=== PATIENT | male | born 1955 ===

== ENCOUNTER 2021-03-28 15:25 | Inpatient (IN) | payer MEDICARE ==
[2021-03-28] MEDS ORDERED: Bisacodyl 5 MG TAB PO PRN (16:47)
[2021-03-28] MEDS ORDERED: Ondansetron PF 4 MG/2 ML Vial IVP PRN (16:47)
[2021-03-28] MEDS ORDERED: Bisacodyl 10 MG SUPP PR PRN (16:47)
[2021-03-28] MEDS ORDERED: Pharmacy to Dose REMDESIVIR IVPB SCH ×2 (17:00→22:30)
[2021-03-28 17:42] LABS: Hemoglobin 14.4 g/dL (13.5-17.5); Mean Corpuscular HGB CONC 36.4 g/dL (32.0-36.0); Mean Corpuscular Volume 85.2 fl (81.2-95.1); Mean Platelet Volume 9.9 fl (7.4-10.4); Platelet Count 122 10x3/uL (150-450); RBC Distribution Width 13.7 % (11.5-14.5); Red Blood Cell (RBC) Count 4.65 10x6/uL (4.32-5.72); White Blood Cell (WBC) Count 9.2 10x3/uL (3.5-10.5)
[2021-03-28 17:48] LABS: D-Dimer Test 2.06 mg/L FEU (0.19-0.50); INR-International Normal Ratio 1.1; Prothrombin Time 12.4 sec (9.5-12.1)
[2021-03-28 17:59] LABS: ALT (SGPT) 39 U/L (8-55); AST (SGOT) 61 U/L (5-34); Albumin 3.4 g/dL (3.4-4.8); Alkaline Phosphatase 37 U/L (40-110); Anion Gap 14 mmol/L (10-20); BUN (Urea Nitrogen) 15 mg/dL (8.4-25.7); Bilirubin, Total 1.1 mg/dL (0.2-1.2); CRP (Inflammatory) 20.07 mg/dL (= or < 0.5); Calc. Creatinine Clearance 0 mL/min (70-130); Calcium 8.1 mg/dL (7.8-10.44); Carbon Dioxide 19 mmol/L (23-31); Chloride 102 mmol/L (98-107); Globulin 3.1 g/dL (2.4-3.5); Glucose 136 mg/dL (80-115); Magnesium 1.4 mg/dL (1.6-2.6); Potassium 3.3 mmol/L (3.5-5.1); Protein, Total 6.5 g/dL (5.8-8.1); Sodium 132 mmol/L (136-145)
[2021-03-28 18:06] LABS: Phosphorus 1.7 mg/dL (2.3-4.7); Troponin I 0.044 ng/mL (< 0.028)
[2021-03-28 18:09] LABS: MDiff Complete? YES; Manual Diff?? YES
[2021-03-28 18:13] LABS: Band 40 % (5-11); Lymphocytes 4 % (21-51); Metamyelocyte 9 % (0-0); Monocytes 4 % (0-10); Neutrophil 42 % (42-75); Reactive Lymphocytes 1 % (0-10)
[2021-03-28 18:15] LABS: Platelet Morphology Comment Appears Decreased
[2021-03-28 18:16] LABS: Dohle Bodies SLIGHT; Toxic Granulation SLIGHT; Vacuoles SLIGHT
[2021-03-28 18:17] LABS: Crenated RBC SLIGHT = 1-5 cells (100X) (None Seen)
[2021-03-28 18:18] LABS: Elliptocytes SLIGHT = 2-5 cells (100X) (0-1/hpf)
[2021-03-28] MEDS ORDERED: Sodium Chloride 0.9% 1,000 ML IV SCH (20:00)
[2021-03-28] MEDS ORDERED: Famotidine 20 MG TAB PO SCH (22:00)
[2021-03-28] MEDS ORDERED: Dexamethasone 4 mg/ml Vial SLOW IVP SCH (22:15)
[2021-03-28] MEDS ORDERED: Enoxaparin Sodium 120 MG/0.8 ML SYRINGE SC SCH (22:15)
[2021-03-28] MEDS: Acetaminophen 325 MG TAB PO PRN (22:22)
[2021-03-28] MEDS: Magnesium 2 GM/50 ML 2 GM in Premix Bag 1 BAG IVPB SCH (22:23)
[2021-03-28] MEDS: Sodium Chloride 0.9% 1,000 ML IV SCH (22:44)
[2021-03-28] MEDS ORDERED: Atorvastatin Calcium 40 MG TAB PO SCH (23:59)
[2021-03-28] MEDS ORDERED: Metoprolol Tartrate 50 MG TAB PO SCH (23:59)
[2021-03-29] MEDS: Magnesium 2 GM/50 ML 2 GM in Premix Bag 1 BAG IVPB SCH (00:28)
[2021-03-29 02:22] LABS: Legionella Urinary Ag Negative (Negative); Strep pneumo Urine Ag NEGATIVE (NEGATIVE)
[2021-03-29] MEDS: Sodium Chloride 0.9% 1,000 ML IV SCH ×2 (05:43→16:20)
[2021-03-29 06:23] LABS: #Basophils 0.1 10x3/uL (0.0-0.2); #Monocytes 0.2 10x3/uL (0.0-1.1); #Neutrophils 7.9 10x3/uL (1.5-8.4); %Basophils 0.6 % (0.0-2.0); %Lymphocytes 8.3 % (18.0-47.0); %Neutrophils 77.9 % (40.0-75.0); Hemoglobin 13.7 g/dL (13.5-17.5); Mean Corpuscular HGB CONC 35.2 g/dL (32.0-36.0); Mean Corpuscular Hemoglobin 30.5 pg (27.0-33.0); Mean Corpuscular Volume 86.6 fl (81.2-95.1); Mean Platelet Volume 10.2 fl (7.4-10.4); Platelet Count 126 10x3/uL (150-450); RBC Distribution Width 13.9 % (11.5-14.5); Red Blood Cell (RBC) Count 4.49 10x6/uL (4.32-5.72); White Blood Cell (WBC) Count 10.1 10x3/uL (3.5-10.5)
[2021-03-29 06:38] LABS: Platelet Morphology Comment Appears Adequate; RBC Morphology Normal
[2021-03-29 06:46] LABS: Band 17 % (5-11); Lymphocytes 9 % (21-51); Monocytes 4 % (0-10)
[2021-03-29 06:48] LABS: Toxic Granulation MODERATE
[2021-03-29 07:08] LABS: ALT (SGPT) 35 U/L (8-55); AST (SGOT) 58 U/L (5-34); Albumin 3.3 g/dL (3.4-4.8); Alkaline Phosphatase 37 U/L (40-110); Anion Gap 14 mmol/L (10-20); BUN (Urea Nitrogen) 15 mg/dL (8.4-25.7); Bilirubin, Total 0.9 mg/dL (0.2-1.2); CRP (Inflammatory) 25.79 mg/dL (= or < 0.5); Calc. Creatinine Clearance 128 mL/min (70-130); Calcium 8.2 mg/dL (7.8-10.44); Carbon Dioxide 21 mmol/L (23-31); Cardiac Risk 3.2 (Less than 4.5); Chloride 104 mmol/L (98-107); Cholesterol 83 mg/dl (< 200 Desired); Globulin 3.2 g/dL (2.4-3.5); Glucose 167 mg/dL (80-115); HDL Cholesterol 26 mg/dL (>60 Neg Risk); LDL Cholesterol, Calculated 34 mg/dL; Magnesium 2.7 mg/dL (1.6-2.6); Potassium 3.3 mmol/L (3.5-5.1); Protein, Total 6.5 g/dL (5.8-8.1); Sodium 136 mmol/L (136-145); Triglycerides 117 mg/dL (Less than 150)
[2021-03-29 07:13] LABS: Phosphorus 1.9 mg/dL (2.3-4.7)
[2021-03-29] MEDS ORDERED: REMDESIVIR 200 MG in Sodium Chloride 0.9% 250 ML 210 ML IV SCH (09:00)
[2021-03-29] MEDS ORDERED: Enoxaparin Sodium 40 MG/0.4 ML SYRINGE SC SCH (09:00)
[2021-03-29] MEDS: Azithromycin 500 MG in Sodium Chloride 0.9% 250 ML 250 ML IVPB SCH (09:07)
[2021-03-29] MEDS: cefTRIAXone\\ROCEPHIN 2 GM in Sodium Chloride 0.9% 100 ML IVPB SCH (09:07)
[2021-03-29] MEDS: Metoprolol Tartrate 50 MG TAB PO SCH ×2 (09:08→20:21)
[2021-03-29] MEDS: Dexamethasone 4 mg/ml Vial SLOW IVP SCH (09:08)
[2021-03-29] MEDS: Enoxaparin Sodium 120 MG/0.8 ML SYRINGE SC SCH ×2 (09:08→20:21)
[2021-03-29] MEDS: Famotidine 20 MG TAB PO SCH ×2 (09:08→20:21)
[2021-03-29] MEDS: PHOS-NAK 1 PKT PACK PO SCH ×3 (09:08→16:20)
[2021-03-29 13:42] LABS: Hemoglobin A1c 6.2 % (4.0-6.0)
[2021-03-29] MEDS: Aspirin 81 mg Enteric Coated Tablet PO SCH (20:21)
[2021-03-29] MEDS: Atorvastatin Calcium 40 MG TAB PO SCH (20:21)
[2021-03-30 05:45] LABS: ALT (SGPT) 34 U/L (8-55); AST (SGOT) 49 U/L (5-34); Alkaline Phosphatase 40 U/L (40-110); Anion Gap 13 mmol/L (10-20); BUN (Urea Nitrogen) 21 mg/dL (8.4-25.7); Bilirubin, Total 0.8 mg/dL (0.2-1.2); Calc. Creatinine Clearance 146 mL/min (70-130); Calcium 8.2 mg/dL (7.8-10.44); Carbon Dioxide 26 mmol/L (23-31); Chloride 107 mmol/L (98-107); Globulin 3.1 g/dL (2.4-3.5); Glucose 121 mg/dL (80-115); Potassium 3.7 mmol/L (3.5-5.1); Protein, Total 6.1 g/dL (5.8-8.1); Sodium 142 mmol/L (136-145)
[2021-03-30 05:49] LABS: Phosphorus 1.7 mg/dL (2.3-4.7)
[2021-03-30 05:54] LABS: Hemoglobin 12.4 g/dL (13.5-17.5); Mean Corpuscular HGB CONC 35.3 g/dL (32.0-36.0); Mean Corpuscular Hemoglobin 30.5 pg (27.0-33.0); Mean Corpuscular Volume 86.5 fl (81.2-95.1); Mean Platelet Volume 10.4 fl (7.4-10.4); Platelet Count 165 10x3/uL (150-450); Red Blood Cell (RBC) Count 4.06 10x6/uL (4.32-5.72); White Blood Cell (WBC) Count 10.3 10x3/uL (3.5-10.5)
[2021-03-30] MEDS ORDERED: Potassium Phosphate 30 MMOL in Sodium Chloride 0.9% 250 ML 250 ML IVPB SCH (06:30)
[2021-03-30 07:18] LABS: Band 14 % (5-11); Lymphocytes 8 % (21-51); Monocytes 4 % (0-10)
[2021-03-30 07:19] LABS: Anisocytosis SLIGHT = 6-15 cells (100X) (0-5/hpf); Microcytosis SLIGHT = 6-15 cells (100X) (0-5/hpf); Neutrophil 74 % (42-75); Poikilocytosis SLIGHT = 6-15 cells (100X) (0-5/hpf)
[2021-03-30 07:20] LABS: Burr Cells SLIGHT = 2-5 cells (100X) (0-1/hpf); Ovalocytes SLIGHT = 2-5 cells (100X) (0-1/hpf)
[2021-03-30 07:21] LABS: Crenated RBC SLIGHT = 1-5 cells (100X) (None Seen); Large Platelets SLIGHT; MDiff Complete? YES; Platelet Morphology Comment Appears Adequate; Toxic Granulation MODERATE
[2021-03-30] MEDS ORDERED: REMDESIVIR 100 MG in Sodium Chloride 0.9% 250 ML 230 ML IV SCH (08:00)
[2021-03-30] MEDS: Famotidine 20 MG TAB PO SCH ×2 (09:00→20:45)
[2021-03-30] MEDS: Dexamethasone 4 mg/ml Vial SLOW IVP SCH (09:00)
[2021-03-30] MEDS: PHOS-NAK 1 PKT PACK PO SCH ×3 (09:00→16:08)
[2021-03-30] MEDS: Enoxaparin Sodium 120 MG/0.8 ML SYRINGE SC SCH (09:01)
[2021-03-30] MEDS: Azithromycin 500 MG in Sodium Chloride 0.9% 250 ML 250 ML IVPB SCH (09:01)
[2021-03-30] MEDS: cefTRIAXone\\ROCEPHIN 2 GM in Sodium Chloride 0.9% 100 ML IVPB SCH (09:01)
[2021-03-30] MEDS: REMDESIVIR 100 MG in Sodium Chloride 0.9% 250 ML 230 ML IV SCH (09:01)
[2021-03-30] MEDS: Metoprolol Tartrate 50 MG TAB PO SCH ×2 (09:01→20:44)
[2021-03-30] MEDS: Atorvastatin Calcium 40 MG TAB PO SCH (20:45)
[2021-03-30] MEDS: Aspirin 81 mg Enteric Coated Tablet PO SCH (20:45)
[2021-03-31 06:49] LABS: ALT (SGPT) 57 U/L (8-55); AST (SGOT) 80 U/L (5-34); Alkaline Phosphatase 54 U/L (40-110); Anion Gap 13 mmol/L (10-20); BUN (Urea Nitrogen) 23 mg/dL (8.4-25.7); Bilirubin, Total 0.8 mg/dL (0.2-1.2); Calc. Creatinine Clearance 162 mL/min (70-130); Calcium 7.6 mg/dL (7.8-10.44); Carbon Dioxide 20 mmol/L (23-31); Chloride 109 mmol/L (98-107); Globulin 2.9 g/dL (2.4-3.5); Glucose 111 mg/dL (80-115); Mean Corpuscular HGB CONC 35.3 g/dL (32.0-36.0); Mean Corpuscular Volume 87.9 fl (81.2-95.1); Mean Platelet Volume 10.7 fl (7.4-10.4); Phosphorus 2.3 mg/dL (2.3-4.7); Platelet Count 183 10x3/uL (150-450); Potassium 3.6 mmol/L (3.5-5.1); Protein, Total 5.9 g/dL (5.8-8.1); RBC Distribution Width 14.1 % (11.5-14.5); Red Blood Cell (RBC) Count 3.87 10x6/uL (4.32-5.72); Sodium 138 mmol/L (136-145); White Blood Cell (WBC) Count 8.4 10x3/uL (3.5-10.5)
[2021-03-31 07:38] LABS: Band 6 % (5-11); Monocytes 5 % (0-10); Nucleated RBC 2 % (0); Reactive Lymphocytes 2 % (0-10)
[2021-03-31 07:39] LABS: Lymphocytes 6 % (21-51)
[2021-03-31 07:40] LABS: Anisocytosis SLIGHT = 6-15 cells (100X) (0-5/hpf)
[2021-03-31 07:41] LABS: Dohle Bodies SLIGHT; Large Platelets SLIGHT; Microcytosis SLIGHT = 6-15 cells (100X) (0-5/hpf); Platelet Morphology Comment Appears Adequate; Toxic Granulation SLIGHT
[2021-03-31 07:44] LABS: MDiff Complete? YES; Neutrophil 81 % (42-75)
[2021-03-31] MEDS ORDERED: Ipratropium Oral Inhaler INH PRN (07:50)
[2021-03-31] MEDS ORDERED: Ventolin HFA Inhaler 60 PUFF INHALER INH PRN (07:50)
[2021-03-31] MEDS ORDERED: Haloperidol Lactate 5 MG/ML VIAL SLOW IVP SCH (08:08)
[2021-03-31 08:45] LABS: Glucose POC Confirmation 109 mg/dl (80-115)
[2021-03-31] MEDS: Azithromycin 500 MG in Sodium Chloride 0.9% 250 ML 250 ML IVPB SCH (10:00)
[2021-03-31 10:01] LABS: Actual Bicarbonate (HCO3a) 21.7 mEq/L (22-28); Base Excess (BEa) 0.6 mEq/L (-2.0 to +3.0); CO2 Tension 25.7 mmHg (35.0-45.0); Calcium, Ionized (arterial) 1.04 mmol/L (1.12-1.30); Carboxyhemoglobin (COHb) 0.3 gm% (0.0-3.0); Hemoglobin (Hb) 13.1 g/dL (14.0-18.0); O2 Tension (PaO2), arterial 44.1 mmHg (> 80.0); Potassium - ABG Lab 3.5 mmol/L (3.70-5.30); Puncture Site RRA; pH, Arterial 7.54 (7.35-7.45)
[2021-03-31 10:05] LABS: ALV-art Gradient 636.775 mmHg (0-20)
[2021-03-31] MEDS: Dexamethasone 20 MG/5 ML VIAL SLOW IVP SCH ×2 (11:15→20:38)
[2021-03-31] MEDS: Famotidine 20 MG TAB PO SCH ×2 (11:15→20:36)
[2021-03-31] MEDS: Metoprolol Tartrate 50 MG TAB PO SCH ×2 (11:15→20:38)
[2021-03-31] MEDS: Enoxaparin Sodium 40 MG/0.4 ML SYRINGE SC SCH (11:15)
[2021-03-31] MEDS: PHOS-NAK 1 PKT PACK PO SCH (11:44)
[2021-03-31] MEDS: Dexmedetomidine In 0.9 % NaCl 100 ML IVPB SCH ×3 (12:04→20:37)
[2021-03-31] MEDS: REMDESIVIR 100 MG in Sodium Chloride 0.9% 250 ML 230 ML IV SCH (12:06)
[2021-03-31] MEDS ORDERED: cefTRIAXone\\ROCEPHIN 2 GM in Sodium Chloride 0.9% 100 ML IVPB SCH (12:15)
[2021-03-31] MEDS: Furosemide 20 MG/2 ML VIAL SLOW IVP SCH (13:05)
[2021-03-31] MEDS: cefTRIAXone\\ROCEPHIN 2 GM in Sodium Chloride 0.9% 100 ML IVPB SCH (13:50)
[2021-03-31] MEDS: Aspirin 81 mg Enteric Coated Tablet PO SCH (20:36)
[2021-03-31] MEDS: Atorvastatin Calcium 40 MG TAB PO SCH (20:36)
[2021-04-01] MEDS: Dexmedetomidine In 0.9 % NaCl 100 ML IVPB SCH ×8 (01:40→22:34)
[2021-04-01] MEDS ORDERED: Morphine 4 MG/ML VIAL SLOW IVP SCH (02:30)
[2021-04-01] MEDS ORDERED: Haloperidol Lactate 5 MG/ML VIAL IM SCH (02:30)
[2021-04-01 03:55] LABS: Hemoglobin 11.5 g/dL (13.5-17.5); Mean Corpuscular HGB CONC 35.4 g/dL (32.0-36.0); Mean Corpuscular Hemoglobin 30.7 pg (27.0-33.0); Mean Corpuscular Volume 86.7 fl (81.2-95.1); Mean Platelet Volume 10.7 fl (7.4-10.4); Platelet Count 196 10x3/uL (150-450); RBC Distribution Width 14.3 % (11.5-14.5); Red Blood Cell (RBC) Count 3.75 10x6/uL (4.32-5.72); White Blood Cell (WBC) Count 5.6 10x3/uL (3.5-10.5)
[2021-04-01 04:07] LABS: ALT (SGPT) 61 U/L (8-55); AST (SGOT) 70 U/L (5-34); Albumin 2.9 g/dL (3.4-4.8); Alkaline Phosphatase 58 U/L (40-110); Anion Gap 15 mmol/L (10-20); BUN (Urea Nitrogen) 27 mg/dL (8.4-25.7); Bilirubin, Total 0.9 mg/dL (0.2-1.2); Calc. Creatinine Clearance 155 mL/min (70-130); Calcium 7.5 mg/dL (7.8-10.44); Carbon Dioxide 18 mmol/L (23-31); Chloride 108 mmol/L (98-107); Globulin 2.9 g/dL (2.4-3.5); Glucose 164 mg/dL (80-115); Magnesium 2.9 mg/dL (1.6-2.6); Phosphorus 2.8 mg/dL (2.3-4.7); Potassium 3.8 mmol/L (3.5-5.1); Protein, Total 5.8 g/dL (5.8-8.1); Sodium 137 mmol/L (136-145)
[2021-04-01 04:51] LABS: Band 4 % (5-11); Lymphocytes 15 % (21-51); Metamyelocyte 1 % (0-0); Monocytes 3 % (0-10); Neutrophil 75 % (42-75); Reactive Lymphocytes 2 % (0-10)
[2021-04-01 04:52] LABS: Anisocytosis SLIGHT = 6-15 cells (100X) (0-5/hpf); Burr Cells SLIGHT = 2-5 cells (100X) (0-1/hpf); Ovalocytes SLIGHT = 2-5 cells (100X) (0-1/hpf); Poikilocytosis SLIGHT = 6-15 cells (100X) (0-5/hpf)
[2021-04-01 04:53] LABS: Large Platelets SLIGHT; Microcytosis SLIGHT = 6-15 cells (100X) (0-5/hpf); Platelet Clumps SLIGHT; Toxic Granulation MODERATE
[2021-04-01 04:54] LABS: Platelet Morphology Comment Appears Adequate
[2021-04-01 04:55] LABS: MDiff Complete? YES
[2021-04-01] MEDS: Furosemide 20 MG/2 ML VIAL SLOW IVP SCH ×2 (06:38→14:54)
[2021-04-01 07:24] LABS: Actual Bicarbonate (HCO3a) 19.3 mEq/L (22-28); Base Excess (BEa) -2.3 mEq/L (-2.0 to +3.0); CO2 Tension 25.1 mmHg (35.0-45.0); Calcium, Ionized (arterial) 1.02 mmol/L (1.12-1.30); Carboxyhemoglobin (COHb) 0.2 gm% (0.0-3.0); Hemoglobin (Hb) 13.2 g/dL (14.0-18.0); O2 Tension (PaO2), arterial 47.7 mmHg (> 80.0); Potassium - ABG Lab 3.6 mmol/L (3.70-5.30); Puncture Site LRA
[2021-04-01 07:29] LABS: ALV-art Gradient 598.275 mmHg (0-20)
[2021-04-01] MEDS: Azithromycin 500 MG in Sodium Chloride 0.9% 250 ML 250 ML IVPB SCH (08:08)
[2021-04-01] MEDS: cefTRIAXone\\ROCEPHIN 2 GM in Sodium Chloride 0.9% 100 ML IVPB SCH (08:11)
[2021-04-01] MEDS: Enoxaparin Sodium 40 MG/0.4 ML SYRINGE SC SCH (08:14)
[2021-04-01] MEDS: Famotidine 20 MG TAB PO SCH ×2 (08:14→21:34)
[2021-04-01] MEDS: Metoprolol Tartrate 50 MG TAB PO SCH (08:14)
[2021-04-01] MEDS: Dexamethasone 20 MG/5 ML VIAL SLOW IVP SCH ×2 (08:15→21:14)
[2021-04-01] MEDS ORDERED: cefTRIAXone\\ROCEPHIN 2 GM in Sodium Chloride 0.9% 100 ML IVPB SCH (09:00)
[2021-04-01] MEDS ORDERED: Electrolyte Replacement Protocol 1 EACH FS SCH (10:30)
[2021-04-01] MEDS: REMDESIVIR 100 MG in Sodium Chloride 0.9% 250 ML 230 ML IV SCH (10:36)
[2021-04-01] MEDS: Haloperidol Lactate 5 MG/ML VIAL SLOW IVP PRN (11:45)
[2021-04-01] MEDS: Lorazepam 2 MG/ML VIAL SLOW IVP PRN ×2 (17:12→21:14)
[2021-04-01] MEDS ORDERED: Sterile Water 10 ML VIAL FS PRN (18:00)
[2021-04-01] MEDS ORDERED: Ziprasidone 20 MG VIAL IM SCH (18:00)
[2021-04-01] MEDS: Atorvastatin Calcium 40 MG TAB PO SCH (21:34)
[2021-04-01] MEDS: Metoprolol Tartrate 25 MG TAB PO SCH (21:34)
[2021-04-01] MEDS: Aspirin 81 mg Enteric Coated Tablet PO SCH (21:34)
[2021-04-02] MEDS: Dexmedetomidine In 0.9 % NaCl 100 ML IVPB SCH ×5 (01:00→22:21)
[2021-04-02] MEDS: Lorazepam 2 MG/ML VIAL SLOW IVP PRN ×6 (03:40→15:51)
[2021-04-02 04:13] LABS: Hemoglobin 13.6 g/dL (13.5-17.5); Mean Corpuscular Hemoglobin 30.8 pg (27.0-33.0); Mean Corpuscular Volume 88.2 fl (81.2-95.1); Mean Platelet Volume 10.5 fl (7.4-10.4); Platelet Count 224 10x3/uL (150-450); RBC Distribution Width 14.6 % (11.5-14.5); Red Blood Cell (RBC) Count 4.41 10x6/uL (4.32-5.72); White Blood Cell (WBC) Count 8.1 10x3/uL (3.5-10.5)
[2021-04-02 04:22] LABS: ALT (SGPT) 55 U/L (8-55); AST (SGOT) 57 U/L (5-34); Albumin 3.1 g/dL (3.4-4.8); Alkaline Phosphatase 80 U/L (40-110); Anion Gap 14 mmol/L (10-20); BUN (Urea Nitrogen) 25 mg/dL (8.4-25.7); Bilirubin, Total 0.9 mg/dL (0.2-1.2); Calc. Creatinine Clearance 149 mL/min (70-130); Calcium 7.6 mg/dL (7.8-10.44); Carbon Dioxide 22 mmol/L (23-31); Chloride 110 mmol/L (98-107); Globulin 3.4 g/dL (2.4-3.5); Glucose 187 mg/dL (80-115); Magnesium 2.8 mg/dL (1.6-2.6); Phosphorus 3.3 mg/dL (2.3-4.7); Protein, Total 6.5 g/dL (5.8-8.1); Sodium 142 mmol/L (136-145)
[2021-04-02] MEDS: Furosemide 20 MG/2 ML VIAL SLOW IVP SCH ×2 (05:46→13:16)
[2021-04-02 05:52] LABS: Lymphocytes 20 % (21-51); Monocytes 6 % (0-10)
[2021-04-02 05:54] LABS: Nucleated RBC 1 % (0); Reactive Lymphocytes 4 % (0-10)
[2021-04-02 05:55] LABS: Band 5 % (5-11); Neutrophil 65 % (42-75)
[2021-04-02 05:56] LABS: Large Platelets SLIGHT; Platelet Morphology Comment Appears Adequate; Toxic Granulation MODERATE
[2021-04-02 05:57] LABS: MDiff Complete? YES; RBC Morphology Normal
[2021-04-02] MEDS ORDERED: Dextrose 5% in Water 1,000 ML IV PRN (07:41)
[2021-04-02] MEDS ORDERED: Dextrose 50% Abboject 50 ML SYRINGE SLOW IVP PRN (07:41)
[2021-04-02] MEDS: Dexamethasone 20 MG/5 ML VIAL SLOW IVP SCH ×2 (08:33→20:55)
[2021-04-02] MEDS: Enoxaparin Sodium 40 MG/0.4 ML SYRINGE SC SCH (08:36)
[2021-04-02] MEDS: Metoprolol Tartrate 25 MG TAB PO SCH ×2 (08:36→21:03)
[2021-04-02] MEDS: Famotidine/PF 20 mg/2ml Vial SLOW IVP SCH ×2 (08:39→20:56)
[2021-04-02] MEDS: cefTRIAXone\\ROCEPHIN 2 GM in Sodium Chloride 0.9% 100 ML IVPB SCH (08:42)
[2021-04-02] MEDS ORDERED: Amino Acids 4.25 %/Dextrose 5% 2,000 ML BAG IV SCH (09:00)
[2021-04-02] MEDS: REMDESIVIR 100 MG in Sodium Chloride 0.9% 250 ML 230 ML IV SCH (09:00)
[2021-04-02] MEDS: Azithromycin 500 MG in Sodium Chloride 0.9% 250 ML 250 ML IVPB SCH (09:02)
[2021-04-02] MEDS ORDERED: OLANZapine 10 MG VIAL IM SCH ×2 (11:00→21:00)
[2021-04-02] MEDS ORDERED: BARICITINIB 2 MG TAB PO SCH (14:00)
[2021-04-02] MEDS ORDERED: Amino Acids 4.25 %/Dextrose 5% 2,000 ML IV SCH (14:00)
[2021-04-02] MEDS: Haloperidol Lactate 5 MG/ML VIAL SLOW IVP PRN (15:20)
[2021-04-02] MEDS ORDERED: Propofol 1,000 MG/100 ML VIAL IV ONE (15:30)
[2021-04-02] MEDS ORDERED: Rocuronium Bromide 10 MG/ML (10ML VIAL) IVP SCH (15:35)
[2021-04-02] MEDS ORDERED: Rocuronium Bromide 10 MG/ML (10ML VIAL) ONE (15:36)
[2021-04-02] MEDS ORDERED: Morphine 2 MG/ML VIAL SLOW IVP PRN (16:30)
[2021-04-02] MEDS ORDERED: Propofol BOLUS 1,000 MG/100 ML VIAL IV PRN (16:30)
[2021-04-02] MEDS ORDERED: Fentanyl BOLUS 250 ML IVPB PRN (16:30)
[2021-04-02] MEDS ORDERED: Ventilator Sedation Protocol 1 EACH FS SCH (16:45)
[2021-04-02 16:49] LABS: Actual Bicarbonate (HCO3a) 23.5 mEq/L (22-28); Base Excess (BEa) -4.3 mEq/L (-2.0 to +3.0); CO2 Tension 54.4 mmHg (35.0-45.0); Calcium, Ionized (arterial) 1.03 mmol/L (1.12-1.30); Hemoglobin (Hb) 13.6 g/dL (14.0-18.0); O2 Tension (PaO2), arterial 75.9 mmHg (> 80.0); Potassium - ABG Lab 3.7 mmol/L (3.70-5.30); Puncture Site LRA; pH, Arterial 7.25 (7.35-7.45)
[2021-04-02] MEDS: Propofol 1,000 MG/100 ML VIAL IV PRN ×2 (18:00→21:52)
[2021-04-02] MEDS ORDERED: Sodium Chloride 0.9% 250 ML IV SCH (20:30)
[2021-04-02] MEDS: Norepinephrine 8 MG/0.9% NS 250 ML IVPB SCH (20:45)
[2021-04-02] MEDS: Atorvastatin Calcium 40 MG TAB PO SCH (20:54)
[2021-04-02] MEDS: BARICITINIB 2 MG TAB PO SCH (20:54)
[2021-04-02] MEDS: Aspirin 81 mg Enteric Coated Tablet PO SCH (20:54)
[2021-04-02] MEDS: Senokot S 8.6-50 MG TAB PO PRN (20:55)
[2021-04-02] MEDS: HumaLOG 300 UNITS/3 ML VIAL SC PRN (22:07)
[2021-04-02 22:16] LABS: Hemoglobin 12.2 g/dL (13.5-17.5); Mean Corpuscular HGB CONC 34.1 g/dL (32.0-36.0); Mean Corpuscular Hemoglobin 30.3 pg (27.0-33.0); Mean Corpuscular Volume 89.1 fl (81.2-95.1); Mean Platelet Volume 10.8 fl (7.4-10.4); Platelet Count 183 10x3/uL (150-450); RBC Distribution Width 14.8 % (11.5-14.5); Red Blood Cell (RBC) Count 4.02 10x6/uL (4.32-5.72); White Blood Cell (WBC) Count 8.2 10x3/uL (3.5-10.5)
[2021-04-02] MEDS: Vecuronium Bromide 50 MG, Admixture Fee 1 EACH in Sodium Chloride 0.9% 250 ML 250 ML IV SCH (22:21)
[2021-04-02 22:27] LABS: ALT (SGPT) 52 U/L (8-55); AST (SGOT) 45 U/L (5-34); Albumin 2.9 g/dL (3.4-4.8); Alkaline Phosphatase 74 U/L (40-110); Anion Gap 14 mmol/L (10-20); BUN (Urea Nitrogen) 32 mg/dL (8.4-25.7); Bilirubin, Total 0.8 mg/dL (0.2-1.2); Calc. Creatinine Clearance 133 mL/min (70-130); Calcium 7.4 mg/dL (7.8-10.44); Carbon Dioxide 23 mmol/L (23-31); Chloride 111 mmol/L (98-107); Globulin 3.5 g/dL (2.4-3.5); Glucose 195 mg/dL (80-115); Potassium 4.3 mmol/L (3.5-5.1); Protein, Total 6.4 g/dL (5.8-8.1); Sodium 144 mmol/L (136-145)
[2021-04-02 23:02] LABS: Band 8 % (5-11); Lymphocytes 7 % (21-51); Metamyelocyte 2 % (0-0); Myelocyte 1 % (0-0)
[2021-04-02 23:04] LABS: Reactive Lymphocytes 2 % (0-10)
[2021-04-02 23:05] LABS: Monocytes 2 % (0-10); Neutrophil 78 % (42-75)
[2021-04-02 23:07] LABS: Large Platelets SLIGHT; Platelet Clumps SLIGHT; Platelet Morphology Comment Appears Adequate; Toxic Granulation MODERATE
[2021-04-02 23:08] LABS: MDiff Complete? YES; RBC Morphology Normal
[2021-04-02 23:51] LABS: Base Excess (BEa) -3.4 mEq/L (-2.0 to +3.0); CO2 Tension 52.8 mmHg (35.0-45.0); Calcium, Ionized (arterial) 1.04 mmol/L (1.12-1.30); Carboxyhemoglobin (COHb) 0.5 gm% (0.0-3.0); Hemoglobin (Hb) 13.9 g/dL (14.0-18.0); Potassium - ABG Lab 4.3 mmol/L (3.70-5.30); Puncture Site RBA; pH, Arterial 7.28 (7.35-7.45)
[2021-04-03] MEDS: Propofol 1,000 MG/100 ML VIAL IV PRN ×6 (04:09→20:13)
[2021-04-03] MEDS: Furosemide 20 MG/2 ML VIAL SLOW IVP SCH ×2 (04:09→14:27)
[2021-04-03 04:33] LABS: ALT (SGPT) 48 U/L (8-55); AST (SGOT) 34 U/L (5-34); Albumin 2.7 g/dL (3.4-4.8); Alkaline Phosphatase 66 U/L (40-110); Anion Gap 13 mmol/L (10-20); BUN (Urea Nitrogen) 31 mg/dL (8.4-25.7); Bilirubin, Total 0.8 mg/dL (0.2-1.2); Calc. Creatinine Clearance 133 mL/min (70-130); Calcium 7.1 mg/dL (7.8-10.44); Carbon Dioxide 24 mmol/L (23-31); Chloride 110 mmol/L (98-107); Globulin 3.4 g/dL (2.4-3.5); Glucose 278 mg/dL (80-115); Magnesium 3.1 mg/dL (1.6-2.6); Phosphorus 3.7 mg/dL (2.3-4.7); Potassium 4.8 mmol/L (3.5-5.1); Protein, Total 6.1 g/dL (5.8-8.1); Sodium 142 mmol/L (136-145)
[2021-04-03 04:52] LABS: Band 5 % (5-11); Lymphocytes 6 % (21-51); Monocytes 2 % (0-10); Myelocyte 1 % (0-0)
[2021-04-03 04:55] LABS: Neutrophil 84 % (42-75)
[2021-04-03 04:56] LABS: Reactive Lymphocytes 2 % (0-10)
[2021-04-03 04:58] LABS: Anisocytosis MODERATE=16-30 cells (100X) (0-5/hpf); Macrocytosis SLIGHT = 6-15 cells (100X) (0-5/hpf); Microcytosis SLIGHT = 6-15 cells (100X) (0-5/hpf)
[2021-04-03 05:01] LABS: Ovalocytes SLIGHT = 2-5 cells (100X) (0-1/hpf); Toxic Granulation MODERATE
[2021-04-03 05:02] LABS: Platelet Morphology Comment Appears Adequate
[2021-04-03 05:03] LABS: Large Platelets MODERATE
[2021-04-03 05:05] LABS: Hemoglobin 11.7 g/dL (13.5-17.5); Mean Corpuscular HGB CONC 33.7 g/dL (32.0-36.0); Mean Corpuscular Hemoglobin 30.6 pg (27.0-33.0); Mean Corpuscular Volume 90.8 fl (81.2-95.1); Platelet Count 159 10x3/uL (150-450); Red Blood Cell (RBC) Count 3.82 10x6/uL (4.32-5.72); White Blood Cell (WBC) Count 6.8 10x3/uL (3.5-10.5)
[2021-04-03 05:06] LABS: MDiff Complete? YES
[2021-04-03] MEDS: HumaLOG 300 UNITS/3 ML VIAL SC PRN ×4 (05:20→20:42)
[2021-04-03] MEDS: Vecuronium Bromide 50 MG, Admixture Fee 1 EACH in Sodium Chloride 0.9% 250 ML 250 ML IV SCH ×2 (05:52→17:34)
[2021-04-03] MEDS: fentaNYL Citrate-0.9 % NaCl/PF 100 ML IVPB SCH ×2 (05:53→20:12)
[2021-04-03] MEDS: Dexmedetomidine In 0.9 % NaCl 100 ML IVPB SCH ×6 (05:53→23:47)
[2021-04-03 08:10] LABS: ALV-art Gradient 429.875 mmHg (0-20); Actual Bicarbonate (HCO3a) 23.7 mEq/L (22-28); CO2 Tension 48.9 mmHg (35.0-45.0); Calcium, Ionized (arterial) 1.08 mmol/L (1.12-1.30); Carboxyhemoglobin (COHb) 0.3 gm% (0.0-3.0); Hemoglobin (Hb) 12.5 g/dL (14.0-18.0); O2 Tension (PaO2), arterial 79.4 mmHg (> 80.0); Potassium - ABG Lab 4.7 mmol/L (3.70-5.30); Puncture Site RRA
[2021-04-03] MEDS: Metoprolol Tartrate 25 MG TAB PO SCH ×2 (08:51→20:15)
[2021-04-03] MEDS: Enoxaparin Sodium 40 MG/0.4 ML SYRINGE SC SCH ×2 (08:55→20:12)
[2021-04-03] MEDS: Dexamethasone 20 MG/5 ML VIAL SLOW IVP SCH ×2 (08:55→20:13)
[2021-04-03] MEDS: Famotidine/PF 20 mg/2ml Vial SLOW IVP SCH ×2 (08:55→20:13)
[2021-04-03] MEDS: cefTRIAXone\\ROCEPHIN 2 GM in Sodium Chloride 0.9% 100 ML IVPB SCH (08:56)
[2021-04-03] MEDS: Norepinephrine 8 MG/0.9% NS 250 ML IVPB SCH (10:36)
[2021-04-03] MEDS: Senokot S 8.6-50 MG TAB PO PRN (20:14)
[2021-04-03] MEDS: Atorvastatin Calcium 40 MG TAB PO SCH (20:14)
[2021-04-03] MEDS: BARICITINIB 2 MG TAB PO SCH (20:14)
[2021-04-03] MEDS: Aspirin 81 mg Enteric Coated Tablet PO SCH (20:16)
[2021-04-04] MEDS: Propofol 1,000 MG/100 ML VIAL IV PRN ×6 (00:50→18:06)
[2021-04-04] MEDS: Dexmedetomidine In 0.9 % NaCl 100 ML IVPB SCH ×4 (03:08→18:04)
[2021-04-04 03:48] LABS: #Monocytes 0.1 10x3/uL (0.0-1.1); #Neutrophils 4.6 10x3/uL (1.5-8.4); %Basophils 0.2 % (0.0-2.0); %Lymphocytes 9.7 % (18.0-47.0); %Monocytes 1.8 % (0.0-10.0); %Neutrophils 83.9 % (40.0-75.0); Hemoglobin 10.9 g/dL (13.5-17.5); Mean Corpuscular HGB CONC 33.2 g/dL (32.0-36.0); Mean Corpuscular Hemoglobin 31.1 pg (27.0-33.0); Mean Corpuscular Volume 93.4 fl (81.2-95.1); Mean Platelet Volume 10.8 fl (7.4-10.4); Platelet Count 154 10x3/uL (150-450); RBC Distribution Width 15.4 % (11.5-14.5); Red Blood Cell (RBC) Count 3.51 10x6/uL (4.32-5.72); White Blood Cell (WBC) Count 5.5 10x3/uL (3.5-10.5)
[2021-04-04 04:07] LABS: ALT (SGPT) 33 U/L (8-55); AST (SGOT) 22 U/L (5-34); Albumin 2.6 g/dL (3.4-4.8); Alkaline Phosphatase 56 U/L (40-110); Anion Gap 11 mmol/L (10-20); BUN (Urea Nitrogen) 25 mg/dL (8.4-25.7); Bilirubin, Direct 0.3 mg/dL (0.1-0.3); Bilirubin, Total 0.5 mg/dL (0.2-1.2); Calc. Creatinine Clearance 147 mL/min (70-130); Calcium 7.2 mg/dL (7.8-10.44); Carbon Dioxide 27 mmol/L (23-31); Chloride 113 mmol/L (98-107); Globulin 3.1 g/dL (2.4-3.5); Glucose 256 mg/dL (80-115); Magnesium 3.1 mg/dL (1.6-2.6); Phosphorus 2.9 mg/dL (2.3-4.7); Potassium 5.1 mmol/L (3.5-5.1); Protein, Total 5.7 g/dL (5.8-8.1); Sodium 146 mmol/L (136-145)
[2021-04-04] MEDS: HumaLOG 300 UNITS/3 ML VIAL SC PRN ×3 (04:32→21:09)
[2021-04-04] MEDS: Vecuronium Bromide 50 MG, Admixture Fee 1 EACH in Sodium Chloride 0.9% 250 ML 250 ML IV SCH ×2 (06:33→18:50)
[2021-04-04] MEDS: Furosemide 20 MG/2 ML VIAL SLOW IVP SCH (06:54)
[2021-04-04 08:13] LABS: Actual Bicarbonate (HCO3a) 26.5 mEq/L (22-28); Base Excess (BEa) 0.5 mEq/L (-2.0 to +3.0); CO2 Tension 48.5 mmHg (35.0-45.0); Calcium, Ionized (arterial) 1.05 mmol/L (1.12-1.30); Carboxyhemoglobin (COHb) 0.2 gm% (0.0-3.0); O2 Tension (PaO2), arterial 82.1 mmHg (> 80.0); Potassium - ABG Lab 4.3 mmol/L (3.70-5.30); Puncture Site LRA; pH, Arterial 7.36 (7.35-7.45)
[2021-04-04 08:17] LABS: ALV-art Gradient 356.375 mmHg (0-20)
[2021-04-04 08:34] LABS: CK (CPK) 29 U/L (30-200); Triglycerides 148 mg/dL (Less than 150)
[2021-04-04] MEDS: Famotidine/PF 20 mg/2ml Vial SLOW IVP SCH ×2 (10:30→21:10)
[2021-04-04] MEDS: cefTRIAXone\\ROCEPHIN 2 GM in Sodium Chloride 0.9% 100 ML IVPB SCH (10:30)
[2021-04-04] MEDS ORDERED: OLANZapine 10 MG VIAL IM SCH (10:30)
[2021-04-04] MEDS: Dexamethasone 20 MG/5 ML VIAL SLOW IVP SCH ×2 (10:30→21:09)
[2021-04-04] MEDS: Senokot S 8.6-50 MG TAB PO PRN (10:30)
[2021-04-04] MEDS ORDERED: Lantus 1000 UNITS/10 ML VIAL SC SCH (10:30)
[2021-04-04] MEDS: Enoxaparin Sodium 40 MG/0.4 ML SYRINGE SC SCH ×2 (10:30→21:12)
[2021-04-04] MEDS: fentaNYL Citrate-0.9 % NaCl/PF 100 ML IVPB SCH ×2 (10:31→22:40)
[2021-04-04] MEDS: Lorazepam 2 MG/ML VIAL SLOW IVP PRN (15:53)
[2021-04-04] MEDS: Metoprolol Tartrate 25 MG TAB PO SCH (20:56)
[2021-04-04] MEDS: BARICITINIB 2 MG TAB PO SCH (21:12)
[2021-04-04] MEDS: Atorvastatin Calcium 40 MG TAB PO SCH (21:13)
[2021-04-04] MEDS: Aspirin 81 mg Enteric Coated Tablet PO SCH (21:13)
[2021-04-05] MEDS: Dexmedetomidine In 0.9 % NaCl 100 ML IVPB SCH ×5 (00:08→21:26)
[2021-04-05] MEDS: Propofol 1,000 MG/100 ML VIAL IV PRN ×7 (03:22→21:35)
[2021-04-05] MEDS: HumaLOG 300 UNITS/3 ML VIAL SC PRN ×3 (04:49→16:18)
[2021-04-05] MEDS: OLANZapine 10 MG VIAL IM SCH (08:49)
[2021-04-05] MEDS: Senokot S 8.6-50 MG TAB PO PRN (08:50)
[2021-04-05] MEDS: cefTRIAXone\\ROCEPHIN 2 GM in Sodium Chloride 0.9% 100 ML IVPB SCH (08:50)
[2021-04-05] MEDS: fentaNYL Citrate-0.9 % NaCl/PF 100 ML IVPB SCH (08:51)
[2021-04-05] MEDS: Enoxaparin Sodium 40 MG/0.4 ML SYRINGE SC SCH ×2 (08:52→21:27)
[2021-04-05] MEDS: Famotidine/PF 20 mg/2ml Vial SLOW IVP SCH ×2 (08:52→21:27)
[2021-04-05] MEDS: Lorazepam 2 MG/ML VIAL SLOW IVP PRN ×3 (08:52→16:23)
[2021-04-05] MEDS: Dexamethasone 20 MG/5 ML VIAL SLOW IVP SCH ×2 (08:52→21:27)
[2021-04-05 09:16] LABS: Anion Gap 10 mmol/L (10-20); BUN (Urea Nitrogen) 30 mg/dL (8.4-25.7); Calc. Creatinine Clearance 143 mL/min (70-130); Calcium 7.2 mg/dL (7.8-10.44); Carbon Dioxide 30 mmol/L (23-31); Chloride 111 mmol/L (98-107); Glucose 264 mg/dL (80-115); Sodium 146 mmol/L (136-145)
[2021-04-05] MEDS: Lantus 1000 UNITS/10 ML VIAL SC SCH (09:37)
[2021-04-05] MEDS: Vecuronium Bromide 50 MG, Admixture Fee 1 EACH in Sodium Chloride 0.9% 250 ML 250 ML IV SCH (09:42)
[2021-04-05] MEDS: BARICITINIB 2 MG TAB PO SCH (21:26)
[2021-04-05] MEDS: Aspirin 81 mg Enteric Coated Tablet PO SCH (21:26)
[2021-04-05] MEDS: Atorvastatin Calcium 40 MG TAB PO SCH (21:26)
[2021-04-05] MEDS: Senokot S 8.6-50 MG TAB PO SCH (21:27)
[2021-04-06] MEDS: fentaNYL Citrate-0.9 % NaCl/PF 100 ML IVPB SCH ×3 (00:06→21:42)
[2021-04-06] MEDS: Propofol 1,000 MG/100 ML VIAL IV PRN ×6 (01:31→21:42)
[2021-04-06] MEDS: Dexmedetomidine In 0.9 % NaCl 100 ML IVPB SCH ×5 (01:31→21:42)
[2021-04-06] MEDS: Vecuronium Bromide 50 MG, Admixture Fee 1 EACH in Sodium Chloride 0.9% 250 ML 250 ML IV SCH (01:31)
[2021-04-06 04:31] LABS: #Monocytes 0.3 10x3/uL (0.0-1.1); #Neutrophils 7.8 10x3/uL (1.5-8.4); %Basophils 0.1 % (0.0-2.0); %Lymphocytes 4.7 % (18.0-47.0); %Monocytes 3.6 % (0.0-10.0); %Neutrophils 89.6 % (40.0-75.0); Mean Corpuscular HGB CONC 31.2 g/dL (32.0-36.0); Mean Corpuscular Hemoglobin 30.2 pg (27.0-33.0); Mean Platelet Volume 10.4 fl (7.4-10.4); Platelet Count 170 10x3/uL (150-450); RBC Distribution Width 15.4 % (11.5-14.5); Red Blood Cell (RBC) Count 3.31 10x6/uL (4.32-5.72); White Blood Cell (WBC) Count 8.7 10x3/uL (3.5-10.5)
[2021-04-06 04:49] LABS: ALT (SGPT) 32 U/L (8-55); AST (SGOT) 29 U/L (5-34); Albumin 2.5 g/dL (3.4-4.8); Alkaline Phosphatase 64 U/L (40-110); Anion Gap 9 mmol/L (10-20); BUN (Urea Nitrogen) 26 mg/dL (8.4-25.7); Bilirubin, Total 0.6 mg/dL (0.2-1.2); Calc. Creatinine Clearance 145 mL/min (70-130); Calcium 7.4 mg/dL (7.8-10.44); Carbon Dioxide 30 mmol/L (23-31); Chloride 114 mmol/L (98-107); Globulin 3.4 g/dL (2.4-3.5); Glucose 247 mg/dL (80-115); Potassium 5.2 mmol/L (3.5-5.1); Protein, Total 5.9 g/dL (5.8-8.1); Sodium 148 mmol/L (136-145)
[2021-04-06] MEDS: HumaLOG 300 UNITS/3 ML VIAL SC PRN ×3 (06:17→18:38)
[2021-04-06 08:04] LABS: Actual Bicarbonate (HCO3a) 30.5 mEq/L (22-28); Base Excess (BEa) 4.8 mEq/L (-2.0 to +3.0); CO2 Tension 50.3 mmHg (35.0-45.0); Calcium, Ionized (arterial) 1.08 mmol/L (1.12-1.30); Hemoglobin (Hb) 10.3 g/dL (14.0-18.0); O2 Tension (PaO2), arterial 67.3 mmHg (> 80.0); Potassium - ABG Lab 4.9 mmol/L (3.70-5.30); Puncture Site RRA
[2021-04-06 08:06] LABS: ALV-art Gradient 226.325 mmHg (0-20)
[2021-04-06] MEDS: Enoxaparin Sodium 40 MG/0.4 ML SYRINGE SC SCH ×2 (08:15→20:32)
[2021-04-06] MEDS: Dexamethasone 20 MG/5 ML VIAL SLOW IVP SCH ×2 (08:16→20:29)
[2021-04-06] MEDS: Polyethylene Glycol 3350 17 GM Packet PER TUBE SCH (08:17)
[2021-04-06] MEDS: Famotidine/PF 20 mg/2ml Vial SLOW IVP SCH ×2 (08:17→20:28)
[2021-04-06] MEDS: Lorazepam 2 MG/ML VIAL SLOW IVP PRN ×3 (08:17→20:29)
[2021-04-06] MEDS: Senokot S 8.6-50 MG TAB PO SCH ×2 (08:17→20:29)
[2021-04-06] MEDS: Lantus 1000 UNITS/10 ML VIAL SC SCH ×2 (08:18→20:31)
[2021-04-06] MEDS: OLANZapine 10 MG VIAL IM SCH (08:21)
[2021-04-06] MEDS: BARICITINIB 2 MG TAB PO SCH (20:29)
[2021-04-06] MEDS: Atorvastatin Calcium 40 MG TAB PO SCH (20:30)
[2021-04-06] MEDS: Aspirin 81 mg Enteric Coated Tablet PO SCH (20:30)
[2021-04-06] MEDS: Nystatin 500,000 UNITS/5 ML UDCUP SSW SCH (21:47)
[2021-04-07] MEDS: Dexmedetomidine In 0.9 % NaCl 100 ML IVPB SCH ×5 (01:42→23:15)
[2021-04-07] MEDS: Propofol 1,000 MG/100 ML VIAL IV PRN ×5 (01:42→21:00)
[2021-04-07 04:28] LABS: #Monocytes 0.2 10x3/uL (0.0-1.1); #Neutrophils 6.9 10x3/uL (1.5-8.4); %Basophils 0.1 % (0.0-2.0); %Lymphocytes 7.8 % (18.0-47.0); %Monocytes 2.9 % (0.0-10.0); %Neutrophils 87.9 % (40.0-75.0); Hemoglobin 9.4 g/dL (13.5-17.5); Mean Corpuscular HGB CONC 31.6 g/dL (32.0-36.0); Mean Platelet Volume 11.2 fl (7.4-10.4); Platelet Count 159 10x3/uL (150-450); RBC Distribution Width 15.3 % (11.5-14.5); Red Blood Cell (RBC) Count 3.03 10x6/uL (4.32-5.72); White Blood Cell (WBC) Count 7.8 10x3/uL (3.5-10.5)
[2021-04-07 04:30] LABS: ALT (SGPT) 58 U/L (8-55); AST (SGOT) 56 U/L (5-34); Albumin 2.5 g/dL (3.4-4.8); Alkaline Phosphatase 70 U/L (40-110); Anion Gap 10 mmol/L (10-20); BUN (Urea Nitrogen) 30 mg/dL (8.4-25.7); Bilirubin, Direct 0.5 mg/dL (0.1-0.3); Bilirubin, Total 0.7 mg/dL (0.2-1.2); Calc. Creatinine Clearance 160 mL/min (70-130); Calcium 7.6 mg/dL (7.8-10.44); Carbon Dioxide 29 mmol/L (23-31); Chloride 114 mmol/L (98-107); Globulin 3.3 g/dL (2.4-3.5); Glucose 245 mg/dL (80-115); Potassium 4.9 mmol/L (3.5-5.1); Protein, Total 5.8 g/dL (5.8-8.1); Sodium 148 mmol/L (136-145)
[2021-04-07] MEDS: HumaLOG 300 UNITS/3 ML VIAL SC PRN ×2 (05:16→17:00)
[2021-04-07 06:57] LABS: Actual Bicarbonate (HCO3a) 29.2 mEq/L (22-28); Base Excess (BEa) 4.4 mEq/L (-2.0 to +3.0); CO2 Tension 44.5 mmHg (35.0-45.0); Carboxyhemoglobin (COHb) 0.3 gm% (0.0-3.0); Hemoglobin (Hb) 10.3 g/dL (14.0-18.0); O2 Tension (PaO2), arterial 67.4 mmHg (> 80.0); Potassium - ABG Lab 4.6 mmol/L (3.70-5.30); Puncture Site RRA; pH, Arterial 7.44 (7.35-7.45)
[2021-04-07 06:58] LABS: ALV-art Gradient 233.475 mmHg (0-20)
[2021-04-07] MEDS: Senokot S 8.6-50 MG TAB PO SCH ×2 (09:36→21:12)
[2021-04-07] MEDS: OLANZapine 10 MG VIAL IM SCH (09:36)
[2021-04-07] MEDS: Enoxaparin Sodium 40 MG/0.4 ML SYRINGE SC SCH ×2 (09:36→21:14)
[2021-04-07] MEDS: Polyethylene Glycol 3350 17 GM Packet PER TUBE SCH (09:37)
[2021-04-07] MEDS: Dexamethasone 20 MG/5 ML VIAL SLOW IVP SCH ×2 (09:37→21:14)
[2021-04-07] MEDS: Famotidine/PF 20 mg/2ml Vial SLOW IVP SCH ×2 (09:37→21:13)
[2021-04-07] MEDS: Lorazepam 2 MG/ML VIAL SLOW IVP PRN ×3 (09:37→22:15)
[2021-04-07] MEDS: Nystatin 500,000 UNITS/5 ML UDCUP SSW SCH ×4 (09:39→21:14)
[2021-04-07] MEDS: Lantus 1000 UNITS/10 ML VIAL SC SCH ×2 (09:40→21:16)
[2021-04-07] MEDS: fentaNYL Citrate-0.9 % NaCl/PF 100 ML IVPB SCH (12:07)
[2021-04-07] MEDS ORDERED: Lidocaine 1% PF 10 ML AMP FS SCH (15:00)
[2021-04-07] MEDS: Atorvastatin Calcium 40 MG TAB PO SCH (21:12)
[2021-04-07] MEDS: BARICITINIB 2 MG TAB PO SCH (21:12)
[2021-04-07] MEDS: Aspirin 81 mg Enteric Coated Tablet PO SCH (21:13)
[2021-04-07] MEDS: Acetaminophen 325 MG TAB PO PRN (21:14)
[2021-04-08] MEDS: Propofol 1,000 MG/100 ML VIAL IV PRN ×6 (00:09→22:10)
[2021-04-08] MEDS: fentaNYL Citrate-0.9 % NaCl/PF 100 ML IVPB SCH ×2 (00:39→14:02)
[2021-04-08] MEDS: Dexmedetomidine In 0.9 % NaCl 100 ML IVPB SCH ×5 (04:15→22:10)
[2021-04-08 05:02] LABS: #Monocytes 0.2 10x3/uL (0.0-1.1); #Neutrophils 8.7 10x3/uL (1.5-8.4); %Basophils 0.1 % (0.0-2.0); %Lymphocytes 5.6 % (18.0-47.0); %Monocytes 2.4 % (0.0-10.0); %Neutrophils 91.1 % (40.0-75.0); Hemoglobin 9.5 g/dL (13.5-17.5); Mean Corpuscular HGB CONC 31.9 g/dL (32.0-36.0); Mean Corpuscular Hemoglobin 30.4 pg (27.0-33.0); Mean Corpuscular Volume 95.2 fl (81.2-95.1); Mean Platelet Volume 11.3 fl (7.4-10.4); Platelet Count 160 10x3/uL (150-450); Red Blood Cell (RBC) Count 3.13 10x6/uL (4.32-5.72); White Blood Cell (WBC) Count 9.6 10x3/uL (3.5-10.5)
[2021-04-08 05:08] LABS: ALT (SGPT) 51 U/L (8-55); AST (SGOT) 43 U/L (5-34); Albumin 2.5 g/dL (3.4-4.8); Alkaline Phosphatase 69 U/L (40-110); Anion Gap 10 mmol/L (10-20); BUN (Urea Nitrogen) 30 mg/dL (8.4-25.7); Bilirubin, Total 0.7 mg/dL (0.2-1.2); Calc. Creatinine Clearance 171 mL/min (70-130); Calcium 7.7 mg/dL (7.8-10.44); Carbon Dioxide 28 mmol/L (23-31); Chloride 111 mmol/L (98-107); Globulin 3.3 g/dL (2.4-3.5); Glucose 215 mg/dL (80-115); Potassium 4.8 mmol/L (3.5-5.1); Protein, Total 5.8 g/dL (5.8-8.1); Sodium 144 mmol/L (136-145)
[2021-04-08] MEDS: HumaLOG 300 UNITS/3 ML VIAL SC PRN ×3 (05:11→17:00)
[2021-04-08 09:06] LABS: ALV-art Gradient 244.525 mmHg (0-20); Actual Bicarbonate (HCO3a) 27.1 mEq/L (22-28); Base Excess (BEa) 3.1 mEq/L (-2.0 to +3.0); CO2 Tension 39.5 mmHg (35.0-45.0); Carboxyhemoglobin (COHb) 0.1 gm% (0.0-3.0); Hemoglobin (Hb) 9.7 g/dL (14.0-18.0); O2 Tension (PaO2), arterial 62.6 mmHg (> 80.0); Potassium - ABG Lab 4.6 mmol/L (3.70-5.30); Puncture Site LRA; pH, Arterial 7.46 (7.35-7.45)
[2021-04-08] MEDS: Famotidine/PF 20 mg/2ml Vial SLOW IVP SCH ×2 (09:12→22:08)
[2021-04-08] MEDS: Senokot S 8.6-50 MG TAB PO SCH ×2 (09:12→22:07)
[2021-04-08] MEDS: Lorazepam 2 MG/ML VIAL SLOW IVP PRN ×2 (09:12→19:20)
[2021-04-08] MEDS: Dexamethasone 20 MG/5 ML VIAL SLOW IVP SCH (09:12)
[2021-04-08] MEDS: Enoxaparin Sodium 40 MG/0.4 ML SYRINGE SC SCH ×2 (09:13→22:07)
[2021-04-08] MEDS: Nystatin 500,000 UNITS/5 ML UDCUP SSW SCH ×4 (09:13→22:17)
[2021-04-08] MEDS: Polyethylene Glycol 3350 17 GM Packet PER TUBE SCH (09:13)
[2021-04-08] MEDS: Lantus 1000 UNITS/10 ML VIAL SC SCH ×2 (09:14→22:13)
[2021-04-08] MEDS: OLANZapine 10 MG VIAL IM SCH (09:15)
[2021-04-08 10:51] LABS: CSF, Glucose 121 mg/dl (40-70); CSF, Protein 46 mg/dL (15-40)
[2021-04-08] MEDS ORDERED: Furosemide 40 MG/4 ML VIAL SLOW IVP SCH (11:00)
[2021-04-08] MEDS ORDERED: clonazePAM 0.5 MG TAB PO SCH (11:00)
[2021-04-08 11:01] LABS: CSF Source CSF; Clarity Clear (Clear); Tube # 2
[2021-04-08 11:02] LABS: CSF WBC/NonHematics Count-Man 1 /cu.mm (0-5)
[2021-04-08 11:03] LABS: CSF RBC Count - Manual 4 /cu.mm (None Seen)
[2021-04-08] MEDS: clonazePAM 0.5 MG TAB PO SCH ×2 (16:08→22:07)
[2021-04-08] MEDS: Aspirin 81 mg Enteric Coated Tablet PO SCH (22:07)
[2021-04-08] MEDS: Atorvastatin Calcium 40 MG TAB PO SCH (22:07)
[2021-04-08] MEDS: BARICITINIB 2 MG TAB PO SCH (22:08)
[2021-04-09] MEDS: Dexmedetomidine In 0.9 % NaCl 100 ML IVPB SCH ×5 (02:12→20:46)
[2021-04-09] MEDS: Propofol 1,000 MG/100 ML VIAL IV PRN ×7 (02:12→22:17)
[2021-04-09] MEDS: Lorazepam 2 MG/ML VIAL SLOW IVP PRN (03:51)
[2021-04-09] MEDS: fentaNYL Citrate-0.9 % NaCl/PF 100 ML IVPB SCH ×2 (03:58→18:06)
[2021-04-09 04:23] LABS: ALT (SGPT) 44 U/L (8-55); AST (SGOT) 31 U/L (5-34); Albumin 2.7 g/dL (3.4-4.8); Alkaline Phosphatase 73 U/L (40-110); Anion Gap 11 mmol/L (10-20); BUN (Urea Nitrogen) 35 mg/dL (8.4-25.7); Bilirubin, Total 0.7 mg/dL (0.2-1.2); Calc. Creatinine Clearance 168 mL/min (70-130); Carbon Dioxide 29 mmol/L (23-31); Chloride 107 mmol/L (98-107); Globulin 3.7 g/dL (2.4-3.5); Glucose 213 mg/dL (80-115); Potassium 4.1 mmol/L (3.5-5.1); Protein, Total 6.4 g/dL (5.8-8.1); Sodium 143 mmol/L (136-145)
[2021-04-09] MEDS: clonazePAM 0.5 MG TAB PO SCH ×3 (08:36→20:44)
[2021-04-09] MEDS: Senokot S 8.6-50 MG TAB PO SCH ×2 (08:36→20:45)
[2021-04-09] MEDS: Enoxaparin Sodium 40 MG/0.4 ML SYRINGE SC SCH ×2 (08:36→20:44)
[2021-04-09] MEDS: Dexamethasone 20 MG/5 ML VIAL SLOW IVP SCH (08:37)
[2021-04-09] MEDS: Nystatin 500,000 UNITS/5 ML UDCUP SSW SCH ×4 (08:37→20:45)
[2021-04-09] MEDS: Famotidine/PF 20 mg/2ml Vial SLOW IVP SCH ×2 (08:37→20:44)
[2021-04-09] MEDS: Polyethylene Glycol 3350 17 GM Packet PER TUBE SCH (08:37)
[2021-04-09] MEDS: Lantus 1000 UNITS/10 ML VIAL SC SCH ×2 (08:37→20:45)
[2021-04-09] MEDS: OLANZapine 10 MG VIAL IM SCH (08:44)
[2021-04-09] MEDS ORDERED: Furosemide 40 MG/4 ML VIAL SLOW IVP SCH (10:30)
[2021-04-09] MEDS: HumaLOG 300 UNITS/3 ML VIAL SC PRN ×2 (16:34→21:07)
[2021-04-09] MEDS: BARICITINIB 2 MG TAB PO SCH (20:43)
[2021-04-09] MEDS: Aspirin 81 mg Enteric Coated Tablet PO SCH (20:43)
[2021-04-09] MEDS: Atorvastatin Calcium 40 MG TAB PO SCH (20:43)
[2021-04-10] MEDS: Dexmedetomidine In 0.9 % NaCl 100 ML IVPB SCH ×2 (00:57→05:32)
[2021-04-10 04:23] LABS: ALT (SGPT) 48 U/L (8-55); AST (SGOT) 32 U/L (5-34); Albumin 2.4 g/dL (3.4-4.8); Alkaline Phosphatase 69 U/L (40-110); Anion Gap 10 mmol/L (10-20); BUN (Urea Nitrogen) 34 mg/dL (8.4-25.7); Bilirubin, Direct 0.5 mg/dL (0.1-0.3); Bilirubin, Total 0.7 mg/dL (0.2-1.2); Calc. Creatinine Clearance 161 mL/min (70-130); Calcium 7.9 mg/dL (7.8-10.44); Carbon Dioxide 29 mmol/L (23-31); Chloride 105 mmol/L (98-107); Globulin 3.4 g/dL (2.4-3.5); Glucose 180 mg/dL (80-115); Potassium 3.8 mmol/L (3.5-5.1); Protein, Total 5.8 g/dL (5.8-8.1); Sodium 140 mmol/L (136-145)
[2021-04-10] MEDS: HumaLOG 300 UNITS/3 ML VIAL SC PRN ×4 (04:38→21:06)
[2021-04-10] MEDS: fentaNYL Citrate-0.9 % NaCl/PF 100 ML IVPB SCH ×2 (05:37→17:38)
[2021-04-10] MEDS: Propofol 1,000 MG/100 ML VIAL IV PRN ×5 (07:24→22:35)
[2021-04-10] MEDS: Polyethylene Glycol 3350 17 GM Packet PER TUBE SCH (09:47)
[2021-04-10] MEDS: Senokot S 8.6-50 MG TAB PO SCH ×2 (09:47→20:18)
[2021-04-10] MEDS: clonazePAM 0.5 MG TAB PO SCH ×3 (09:47→20:16)
[2021-04-10] MEDS: Famotidine/PF 20 mg/2ml Vial SLOW IVP SCH ×2 (09:47→20:17)
[2021-04-10] MEDS: Enoxaparin Sodium 40 MG/0.4 ML SYRINGE SC SCH ×2 (09:47→20:17)
[2021-04-10] MEDS: Dexamethasone 20 MG/5 ML VIAL SLOW IVP SCH (09:47)
[2021-04-10] MEDS: OLANZapine 10 MG VIAL IM SCH (09:53)
[2021-04-10] MEDS: Lantus 1000 UNITS/10 ML VIAL SC SCH ×2 (09:54→20:17)
[2021-04-10] MEDS: Nystatin 500,000 UNITS/5 ML UDCUP SSW SCH ×4 (09:54→20:17)
[2021-04-10] MEDS: Dexmedetomidine In 0.9 % NaCl 400 MCG in Premix Bag 1 BAG IVPB SCH ×3 (14:48→23:35)
[2021-04-10] MEDS: Aspirin 81 mg Enteric Coated Tablet PO SCH (20:16)
[2021-04-10] MEDS: BARICITINIB 2 MG TAB PO SCH (20:16)
[2021-04-10] MEDS: Atorvastatin Calcium 40 MG TAB PO SCH (20:16)
[2021-04-11] MEDS: Propofol 1,000 MG/100 ML VIAL IV PRN ×5 (03:08→23:21)
[2021-04-11 04:16] LABS: Magnesium 2.2 mg/dL (1.6-2.6); Phosphorus 3.6 mg/dL (2.3-4.7)
[2021-04-11 04:53] LABS: Anion Gap 12 mmol/L (10-20); BUN (Urea Nitrogen) 31 mg/dL (8.4-25.7); Calc. Creatinine Clearance 186 mL/min (70-130); Calcium 8.6 mg/dL (7.8-10.44); Carbon Dioxide 26 mmol/L (23-31); Chloride 106 mmol/L (98-107); Glucose 248 mg/dL (80-115); Potassium 4.1 mmol/L (3.5-5.1); Sodium 140 mmol/L (136-145)
[2021-04-11] MEDS: HumaLOG 300 UNITS/3 ML VIAL SC PRN ×3 (05:03→21:57)
[2021-04-11] MEDS: Dexmedetomidine In 0.9 % NaCl 400 MCG in Premix Bag 1 BAG IVPB SCH ×3 (05:22→18:56)
[2021-04-11 06:31] LABS: #Monocytes 0.2 10x3/uL (0.0-1.1); %Lymphocytes 6.8 % (18.0-47.0); %Monocytes 2.4 % (0.0-10.0); %Neutrophils 89.9 % (40.0-75.0); Hemoglobin 9.3 g/dL (13.5-17.5); Mean Corpuscular HGB CONC 32.5 g/dL (32.0-36.0); Mean Corpuscular Hemoglobin 30.3 pg (27.0-33.0); Mean Corpuscular Volume 93.2 fl (81.2-95.1); Mean Platelet Volume 12.5 fl (7.4-10.4); Platelet Count 150 10x3/uL (150-450); RBC Distribution Width 15.2 % (11.5-14.5); Red Blood Cell (RBC) Count 3.07 10x6/uL (4.32-5.72); White Blood Cell (WBC) Count 8.9 10x3/uL (3.5-10.5)
[2021-04-11 06:42] LABS: ALT (SGPT) 58 U/L (8-55); AST (SGOT) 47 U/L (5-34); Albumin 2.5 g/dL (3.4-4.8); Alkaline Phosphatase 84 U/L (40-110); Bilirubin, Total 0.7 mg/dL (0.2-1.2); Globulin 3.7 g/dL (2.4-3.5); Protein, Total 6.2 g/dL (5.8-8.1)
[2021-04-11] MEDS: fentaNYL Citrate-0.9 % NaCl/PF 100 ML IVPB SCH ×2 (07:54→21:56)
[2021-04-11] MEDS: Dexamethasone 20 MG/5 ML VIAL SLOW IVP SCH (09:12)
[2021-04-11] MEDS: Famotidine/PF 20 mg/2ml Vial SLOW IVP SCH ×2 (09:12→20:11)
[2021-04-11] MEDS: Lantus 1000 UNITS/10 ML VIAL SC SCH ×2 (09:52→20:10)
[2021-04-11] MEDS: hydrALAZINE 20 MG/ML VIAL SLOW IVP PRN ×3 (09:52→14:01)
[2021-04-11] MEDS ORDERED: Fentanyl 100 MCG/2 ML VIAL ONE (10:08)
[2021-04-11] MEDS ORDERED: PROPOFOL 20 ML ONE (10:08)
[2021-04-11] MEDS ORDERED: EPINEPHrine 1 MG/ML AMP ONE (10:15)
[2021-04-11] MEDS ORDERED: Bupivacaine 0.25% HCL 30 ML VIAL ONE (10:15)
[2021-04-11] MEDS ORDERED: Rocuronium Bromide 10 MG/ML (10ML VIAL) ONE (10:32)
[2021-04-11] MEDS: Enoxaparin Sodium 40 MG/0.4 ML SYRINGE SC SCH ×2 (11:16→20:10)
[2021-04-11] MEDS: clonazePAM 0.5 MG TAB PO SCH ×3 (11:17→20:10)
[2021-04-11] MEDS: Polyethylene Glycol 3350 17 GM Packet PER TUBE SCH (11:18)
[2021-04-11] MEDS: Senokot S 8.6-50 MG TAB PO SCH ×2 (11:18→20:11)
[2021-04-11] MEDS: OLANZapine 10 MG VIAL IM SCH (11:49)
[2021-04-11] MEDS: Nystatin 500,000 UNITS/5 ML UDCUP SSW SCH ×4 (11:49→20:10)
[2021-04-11 13:55] LABS: Actual Bicarbonate (HCO3a) 26.7 mEq/L (22-28); Base Excess (BEa) 3.1 mEq/L (-2.0 to +3.0); CO2 Tension 37.3 mmHg (35.0-45.0); Calcium, Ionized (arterial) 1.07 mmol/L (1.12-1.30); Carboxyhemoglobin (COHb) 0.8 gm% (0.0-3.0); Hemoglobin (Hb) 11.9 g/dL (14.0-18.0); O2 Tension (PaO2), arterial 47.9 mmHg (> 80.0); Potassium - ABG Lab 4.2 mmol/L (3.70-5.30); Puncture Site RRA; pH, Arterial 7.47 (7.35-7.45)
[2021-04-11 14:01] LABS: ALV-art Gradient 226.325 mmHg (0-20)
[2021-04-11] MEDS: Aspirin 81 mg Enteric Coated Tablet PO SCH (20:09)
[2021-04-11] MEDS: Atorvastatin Calcium 40 MG TAB PO SCH (20:09)
[2021-04-11] MEDS: BARICITINIB 2 MG TAB PO SCH (20:09)
[2021-04-11 23:48] LABS: Actual Bicarbonate (HCO3a) 25.3 mEq/L (22-28); Base Excess (BEa) 1.8 mEq/L (-2.0 to +3.0); CO2 Tension 35.2 mmHg (35.0-45.0); Calcium, Ionized (arterial) 1.06 mmol/L (1.12-1.30); Carboxyhemoglobin (COHb) 0.1 gm% (0.0-3.0); Hemoglobin (Hb) 9.5 g/dL (14.0-18.0); O2 Tension (PaO2), arterial 112.5 mmHg (> 80.0); Potassium - ABG Lab 4.4 mmol/L (3.70-5.30); Puncture Site RRA; pH, Arterial 7.48 (7.35-7.45)
[2021-04-12] MEDS: Dexmedetomidine In 0.9 % NaCl 400 MCG in Premix Bag 1 BAG IVPB SCH ×5 (00:36→21:34)
[2021-04-12] MEDS: Propofol 1,000 MG/100 ML VIAL IV PRN ×4 (04:03→21:35)
[2021-04-12 05:48] LABS: #Monocytes 0.4 10x3/uL (0.0-1.1); #Neutrophils 7.7 10x3/uL (1.5-8.4); %Lymphocytes 7.8 % (18.0-47.0); %Monocytes 4.7 % (0.0-10.0); %Neutrophils 86.8 % (40.0-75.0); Hemoglobin 9.8 g/dL (13.5-17.5); Mean Corpuscular HGB CONC 33.1 g/dL (32.0-36.0); Mean Corpuscular Hemoglobin 30.7 pg (27.0-33.0); Mean Corpuscular Volume 92.8 fl (81.2-95.1); Platelet Count 198 10x3/uL (150-450); RBC Distribution Width 15.5 % (11.5-14.5); Red Blood Cell (RBC) Count 3.19 10x6/uL (4.32-5.72); White Blood Cell (WBC) Count 8.9 10x3/uL (3.5-10.5)
[2021-04-12 05:55] LABS: Anion Gap 12 mmol/L (10-20); BUN (Urea Nitrogen) 27 mg/dL (8.4-25.7); Calc. Creatinine Clearance 180 mL/min (70-130); Calcium 8.2 mg/dL (7.8-10.44); Carbon Dioxide 25 mmol/L (23-31); Chloride 107 mmol/L (98-107); Glucose 152 mg/dL (80-115); Sodium 140 mmol/L (136-145)
[2021-04-12] MEDS: clonazePAM 0.5 MG TAB PO SCH ×3 (08:50→21:11)
[2021-04-12] MEDS: Dexamethasone 20 MG/5 ML VIAL SLOW IVP SCH (08:50)
[2021-04-12] MEDS: Enoxaparin Sodium 40 MG/0.4 ML SYRINGE SC SCH ×2 (08:51→21:11)
[2021-04-12] MEDS: Famotidine/PF 20 mg/2ml Vial SLOW IVP SCH ×2 (08:51→21:11)
[2021-04-12] MEDS: Lantus 1000 UNITS/10 ML VIAL SC SCH ×2 (08:52→21:12)
[2021-04-12] MEDS: Polyethylene Glycol 3350 17 GM Packet PER TUBE SCH (08:53)
[2021-04-12 09:42] LABS: Actual Bicarbonate (HCO3a) 26.4 mEq/L (22-28); Base Excess (BEa) 3.3 mEq/L (-2.0 to +3.0); CO2 Tension 34.7 mmHg (35.0-45.0); Calcium, Ionized (arterial) 1.08 mmol/L (1.12-1.30); Carboxyhemoglobin (COHb) 0.3 gm% (0.0-3.0); Hemoglobin (Hb) 10.6 g/dL (14.0-18.0); O2 Tension (PaO2), arterial 69.6 mmHg (> 80.0); Potassium - ABG Lab 3.8 mmol/L (3.70-5.30); Puncture Site RBA
[2021-04-12 09:48] LABS: ALV-art Gradient 350.475 mmHg (0-20)
[2021-04-12] MEDS: Nystatin 500,000 UNITS/5 ML UDCUP SSW SCH ×4 (09:49→21:31)
[2021-04-12] MEDS: OLANZapine 10 MG VIAL IM SCH (09:49)
[2021-04-12] MEDS: Senokot S 8.6-50 MG TAB PO SCH ×2 (09:50→21:31)
[2021-04-12] MEDS: HumaLOG 300 UNITS/3 ML VIAL SC PRN ×2 (16:28→21:13)
[2021-04-12] MEDS: fentaNYL Citrate-0.9 % NaCl/PF 100 ML IVPB SCH (18:42)
[2021-04-12] MEDS: Atorvastatin Calcium 40 MG TAB PO SCH (21:11)
[2021-04-12] MEDS: BARICITINIB 2 MG TAB PO SCH (21:11)
[2021-04-12] MEDS: Aspirin 81 mg Enteric Coated Tablet PO SCH (21:12)
[2021-04-12] MEDS: Aluminum & Magnesium Hydroxide 60 ML, Lidocaine 2% Viscous Solution 30 ML, diphenhydrAM... SSW PRN (21:53)
[2021-04-13] MEDS: Aspirin 81 mg Enteric Coated Tablet PO SCH ×2 (00:12→21:22)
[2021-04-13] MEDS: Enoxaparin Sodium 40 MG/0.4 ML SYRINGE SC SCH ×3 (00:12→21:23)
[2021-04-13] MEDS: hydrALAZINE 20 MG/ML VIAL SLOW IVP PRN (01:06)
[2021-04-13 04:35] LABS: #Monocytes 0.4 10x3/uL (0.0-1.1); #Neutrophils 7.2 10x3/uL (1.5-8.4); %Basophils 0.1 % (0.0-2.0); %Eosinophils 0.1 % (0.0-6.0); %Lymphocytes 11.3 % (18.0-47.0); %Monocytes 4.2 % (0.0-10.0); %Neutrophils 83.7 % (40.0-75.0); Hemoglobin 8.9 g/dL (13.5-17.5); Mean Corpuscular HGB CONC 31.9 g/dL (32.0-36.0); Mean Corpuscular Hemoglobin 29.8 pg (27.0-33.0); Mean Corpuscular Volume 93.3 fl (81.2-95.1); Mean Platelet Volume 11.7 fl (7.4-10.4); Platelet Count 192 10x3/uL (150-450); RBC Distribution Width 15.6 % (11.5-14.5); Red Blood Cell (RBC) Count 2.99 10x6/uL (4.32-5.72); White Blood Cell (WBC) Count 8.6 10x3/uL (3.5-10.5)
[2021-04-13 04:55] LABS: ALT (SGPT) 43 U/L (8-55); AST (SGOT) 30 U/L (5-34); Albumin 2.4 g/dL (3.4-4.8); Alkaline Phosphatase 80 U/L (40-110); Anion Gap 12 mmol/L (10-20); BUN (Urea Nitrogen) 27 mg/dL (8.4-25.7); Bilirubin, Direct 0.5 mg/dL (0.1-0.3); Bilirubin, Total 0.8 mg/dL (0.2-1.2); Calc. Creatinine Clearance 189 mL/min (70-130); Calcium 8.2 mg/dL (7.8-10.44); Carbon Dioxide 24 mmol/L (23-31); Chloride 108 mmol/L (98-107); Glucose 145 mg/dL (80-115); Potassium 3.8 mmol/L (3.5-5.1); Protein, Total 6.2 g/dL (5.8-8.1); Sodium 140 mmol/L (136-145)
[2021-04-13] MEDS: Propofol 1,000 MG/100 ML VIAL IV PRN ×4 (05:55→19:37)
[2021-04-13] MEDS: Dexmedetomidine In 0.9 % NaCl 400 MCG in Premix Bag 1 BAG IVPB SCH ×3 (06:17→19:37)
[2021-04-13] MEDS: clonazePAM 0.5 MG TAB PO SCH ×3 (08:49→21:23)
[2021-04-13] MEDS: Dexamethasone 20 MG/5 ML VIAL SLOW IVP SCH (08:49)
[2021-04-13] MEDS: OLANZapine 10 MG VIAL IM SCH (08:50)
[2021-04-13] MEDS: Famotidine/PF 20 mg/2ml Vial SLOW IVP SCH ×2 (08:50→21:23)
[2021-04-13] MEDS: Lantus 1000 UNITS/10 ML VIAL SC SCH ×2 (08:50→21:24)
[2021-04-13] MEDS: Polyethylene Glycol 3350 17 GM Packet PER TUBE SCH (08:50)
[2021-04-13 09:01] LABS: Actual Bicarbonate (HCO3a) 22.4 mEq/L (22-28); Base Excess (BEa) -0.7 mEq/L (-2.0 to +3.0); CO2 Tension 32.3 mmHg (35.0-45.0); Calcium, Ionized (arterial) 1.14 mmol/L (1.12-1.30); Carboxyhemoglobin (COHb) 0.3 gm% (0.0-3.0); Hemoglobin (Hb) 13.1 g/dL (14.0-18.0); O2 Tension (PaO2), arterial 78.1 mmHg (> 80.0); Potassium - ABG Lab 3.6 mmol/L (3.70-5.30); Puncture Site RRA; pH, Arterial 7.46 (7.35-7.45)
[2021-04-13 09:02] LABS: ALV-art Gradient 309.325 mmHg (0-20)
[2021-04-13] MEDS: Senokot S 8.6-50 MG TAB PO SCH ×3 (09:34→22:01)
[2021-04-13] MEDS: Nystatin 500,000 UNITS/5 ML UDCUP SSW SCH (10:53)
[2021-04-13] MEDS: Aluminum & Magnesium Hydroxide 60 ML, Lidocaine 2% Viscous Solution 30 ML, diphenhydrAM... SSW PRN ×2 (11:31→18:33)
[2021-04-13] MEDS: fentaNYL Citrate-0.9 % NaCl/PF 100 ML IVPB SCH (12:53)
[2021-04-13] MEDS: HumaLOG 300 UNITS/3 ML VIAL SC PRN ×2 (16:14→22:06)
[2021-04-13] MEDS: Atorvastatin Calcium 40 MG TAB PO SCH (21:22)
[2021-04-13] MEDS: BARICITINIB 2 MG TAB PO SCH (21:23)
[2021-04-14] MEDS: fentaNYL Citrate-0.9 % NaCl/PF 100 ML IVPB SCH (03:25)
[2021-04-14] MEDS: Propofol 1,000 MG/100 ML VIAL IV PRN ×4 (03:25→23:11)
[2021-04-14] MEDS: Dexmedetomidine In 0.9 % NaCl 400 MCG in Premix Bag 1 BAG IVPB SCH ×3 (03:26→17:59)
[2021-04-14 04:07] LABS: #Monocytes 0.3 10x3/uL (0.0-1.1); %Eosinophils 0.1 % (0.0-6.0); %Monocytes 3.6 % (0.0-10.0); %Neutrophils 85.9 % (40.0-75.0); Hemoglobin 8.8 g/dL (13.5-17.5); Mean Corpuscular HGB CONC 32.5 g/dL (32.0-36.0); Mean Corpuscular Hemoglobin 30.6 pg (27.0-33.0); Mean Corpuscular Volume 94.1 fl (81.2-95.1); Mean Platelet Volume 11.6 fl (7.4-10.4); Platelet Count 183 10x3/uL (150-450); RBC Distribution Width 15.7 % (11.5-14.5); Red Blood Cell (RBC) Count 2.88 10x6/uL (4.32-5.72); White Blood Cell (WBC) Count 8.1 10x3/uL (3.5-10.5)
[2021-04-14 04:21] LABS: Anion Gap 11 mmol/L (10-20); BUN (Urea Nitrogen) 22 mg/dL (8.4-25.7); Calc. Creatinine Clearance 189 mL/min (70-130); Calcium 8.5 mg/dL (7.8-10.44); Carbon Dioxide 26 mmol/L (23-31); Chloride 106 mmol/L (98-107); Glucose 114 mg/dL (80-115); Sodium 139 mmol/L (136-145)
[2021-04-14] MEDS: Dexamethasone 20 MG/5 ML VIAL SLOW IVP SCH (08:43)
[2021-04-14] MEDS: Enoxaparin Sodium 40 MG/0.4 ML SYRINGE SC SCH ×2 (08:43→21:03)
[2021-04-14] MEDS: clonazePAM 0.5 MG TAB PO SCH ×2 (08:43→16:11)
[2021-04-14] MEDS: Famotidine/PF 20 mg/2ml Vial SLOW IVP SCH ×2 (08:43→21:05)
[2021-04-14] MEDS: Polyethylene Glycol 3350 17 GM Packet PER TUBE SCH (08:44)
[2021-04-14] MEDS: Lantus 1000 UNITS/10 ML VIAL SC SCH ×2 (08:44→21:05)
[2021-04-14] MEDS: Senokot S 8.6-50 MG TAB PO SCH ×2 (08:44→21:06)
[2021-04-14] MEDS: Acetaminophen 325 MG TAB PO PRN (08:53)
[2021-04-14] MEDS: OLANZapine 10 MG VIAL IM SCH (08:53)
[2021-04-14 16:04] LABS: Actual Bicarbonate (HCO3a) 26.6 mEq/L (22-28); Base Excess (BEa) 1.6 mEq/L (-2.0 to +3.0); CO2 Tension 43.6 mmHg (35.0-45.0); Hemoglobin (Hb) 9.8 g/dL (14.0-18.0); O2 Tension (PaO2), arterial 97.4 mmHg (> 80.0)
[2021-04-14 16:05] LABS: Carboxyhemoglobin (COHb) 0.3 gm% (0.0-3.0)
[2021-04-14 16:06] LABS: Calcium, Ionized (arterial) 1.13 mmol/L (1.12-1.30); Potassium - ABG Lab 4.5 mmol/L (3.70-5.30)
[2021-04-14 16:07] LABS: Puncture Site RRA
[2021-04-14] MEDS: oxyCODONE 5 MG TAB PO SCH ×2 (16:13→21:03)
[2021-04-14] MEDS: HumaLOG 300 UNITS/3 ML VIAL SC PRN ×2 (16:20→23:04)
[2021-04-14] MEDS: BARICITINIB 2 MG TAB PO SCH (21:03)
[2021-04-14] MEDS: Aspirin 81 mg Enteric Coated Tablet PO SCH (21:04)
[2021-04-14] MEDS: chlordiazePOXIDE HCl 25 MG CAP PO SCH (21:04)
[2021-04-14] MEDS: Atorvastatin Calcium 40 MG TAB PO SCH (21:04)
[2021-04-14] MEDS: hydrALAZINE 20 MG/ML VIAL SLOW IVP PRN (21:04)
[2021-04-14] MEDS: Lorazepam 2 MG/ML VIAL SLOW IVP PRN (22:18)
[2021-04-15] MEDS: oxyCODONE 5 MG TAB PO SCH ×6 (00:45→20:57)
[2021-04-15] MEDS: Dexmedetomidine In 0.9 % NaCl 400 MCG in Premix Bag 1 BAG IVPB SCH ×2 (06:09→20:39)
[2021-04-15] MEDS: fentaNYL Citrate-0.9 % NaCl/PF 100 ML IVPB SCH (06:09)
[2021-04-15] MEDS: Propofol 1,000 MG/100 ML VIAL IV PRN ×4 (06:09→22:42)
[2021-04-15] MEDS: Enoxaparin Sodium 40 MG/0.4 ML SYRINGE SC SCH ×2 (08:36→20:39)
[2021-04-15] MEDS: Senokot S 8.6-50 MG TAB PO SCH ×2 (08:37→20:39)
[2021-04-15] MEDS: chlordiazePOXIDE HCl 25 MG CAP PO SCH ×3 (08:37→20:39)
[2021-04-15] MEDS: Famotidine/PF 20 mg/2ml Vial SLOW IVP SCH ×2 (08:38→20:57)
[2021-04-15] MEDS: Dexamethasone 20 MG/5 ML VIAL SLOW IVP SCH (08:38)
[2021-04-15] MEDS: Polyethylene Glycol 3350 17 GM Packet PER TUBE SCH (08:40)
[2021-04-15] MEDS: Lantus 1000 UNITS/10 ML VIAL SC SCH ×2 (08:45→20:40)
[2021-04-15] MEDS: OLANZapine 10 MG VIAL IM SCH (10:57)
[2021-04-15 16:17] LABS: ALV-art Gradient 232.575 mmHg (0-20); Base Excess (BEa) 3.9 mEq/L (-2.0 to +3.0); CO2 Tension 40.5 mmHg (35.0-45.0); Calcium, Ionized (arterial) 1.14 mmol/L (1.12-1.30); Carboxyhemoglobin (COHb) 0.2 gm% (0.0-3.0); Hemoglobin (Hb) 9.4 g/dL (14.0-18.0); O2 Tension (PaO2), arterial 73.3 mmHg (> 80.0); Potassium - ABG Lab 3.7 mmol/L (3.70-5.30); Puncture Site RRA; pH, Arterial 7.46 (7.35-7.45)
[2021-04-15] MEDS: Atorvastatin Calcium 40 MG TAB PO SCH (20:39)
[2021-04-15] MEDS: Aspirin 81 mg Enteric Coated Tablet PO SCH (20:39)
[2021-04-15] MEDS: BARICITINIB 2 MG TAB PO SCH (20:39)
[2021-04-15] MEDS: HumaLOG 300 UNITS/3 ML VIAL SC PRN (22:18)
[2021-04-16] MEDS: oxyCODONE 5 MG TAB PO SCH ×6 (00:39→20:37)
[2021-04-16 03:56] LABS: #Eosinphils 0.1 10x3/uL (0.0-0.5); #Monocytes 0.2 10x3/uL (0.0-1.1); #Neutrophils 5.5 10x3/uL (1.5-8.4); %Eosinophils 0.7 % (0.0-6.0); %Lymphocytes 14.6 % (18.0-47.0); %Monocytes 2.5 % (0.0-10.0); %Neutrophils 81.8 % (40.0-75.0); Anion Gap 11 mmol/L (10-20); BUN (Urea Nitrogen) 19 mg/dL (8.4-25.7); Calc. Creatinine Clearance 203 mL/min (70-130); Calcium 8.5 mg/dL (7.8-10.44); Carbon Dioxide 27 mmol/L (23-31); Chloride 104 mmol/L (98-107); Glucose 156 mg/dL (80-115); Hemoglobin 7.6 g/dL (13.5-17.5); Mean Corpuscular HGB CONC 32.3 g/dL (32.0-36.0); Mean Corpuscular Hemoglobin 29.9 pg (27.0-33.0); Mean Corpuscular Volume 92.5 fl (81.2-95.1); Mean Platelet Volume 11.7 fl (7.4-10.4); Platelet Count 175 10x3/uL (150-450); RBC Distribution Width 15.5 % (11.5-14.5); Red Blood Cell (RBC) Count 2.54 10x6/uL (4.32-5.72); Sodium 138 mmol/L (136-145); White Blood Cell (WBC) Count 6.8 10x3/uL (3.5-10.5)
[2021-04-16] MEDS: Propofol 1,000 MG/100 ML VIAL IV PRN ×2 (04:22→11:34)
[2021-04-16] MEDS: Dexmedetomidine In 0.9 % NaCl 400 MCG in Premix Bag 1 BAG IVPB SCH ×5 (04:22→23:29)
[2021-04-16 07:58] LABS: Actual Bicarbonate (HCO3a) 28.2 mEq/L (22-28); Base Excess (BEa) 4.9 mEq/L (-2.0 to +3.0); CO2 Tension 36.8 mmHg (35.0-45.0); Calcium, Ionized (arterial) 1.13 mmol/L (1.12-1.30); Carboxyhemoglobin (COHb) 0.4 gm% (0.0-3.0); Hemoglobin (Hb) 9.8 g/dL (14.0-18.0); O2 Tension (PaO2), arterial 60.2 mmHg (> 80.0); Potassium - ABG Lab 3.6 mmol/L (3.70-5.30); Puncture Site RRA
[2021-04-16] MEDS: Famotidine/PF 20 mg/2ml Vial SLOW IVP SCH ×2 (08:08→20:39)
[2021-04-16] MEDS: Polyethylene Glycol 3350 17 GM Packet PER TUBE SCH (08:08)
[2021-04-16] MEDS: Enoxaparin Sodium 40 MG/0.4 ML SYRINGE SC SCH ×2 (08:09→21:00)
[2021-04-16] MEDS: Senokot S 8.6-50 MG TAB PO SCH ×2 (08:09→20:39)
[2021-04-16] MEDS: Lantus 1000 UNITS/10 ML VIAL SC SCH ×2 (08:09→22:00)
[2021-04-16] MEDS: OLANZapine 10 MG VIAL IM SCH (08:10)
[2021-04-16] MEDS: Lorazepam 2 MG/ML VIAL SLOW IVP PRN ×4 (08:15→23:17)
[2021-04-16] MEDS: chlordiazePOXIDE HCl 25 MG CAP PO SCH ×3 (08:25→20:39)
[2021-04-16] MEDS: fentaNYL Citrate-0.9 % NaCl/PF 100 ML IVPB SCH (20:24)
[2021-04-16] MEDS: Atorvastatin Calcium 40 MG TAB PO SCH (20:38)
[2021-04-16] MEDS: Aspirin 81 mg Enteric Coated Tablet PO SCH (20:38)
[2021-04-17] MEDS: oxyCODONE 5 MG TAB PO SCH ×6 (00:21→20:24)
[2021-04-17] MEDS: Dexmedetomidine In 0.9 % NaCl 400 MCG in Premix Bag 1 BAG IVPB SCH ×6 (03:03→20:25)
[2021-04-17 03:40] LABS: Hemoglobin 8.2 g/dL (13.5-17.5); Mean Corpuscular HGB CONC 32.4 g/dL (32.0-36.0); Mean Corpuscular Hemoglobin 29.6 pg (27.0-33.0); Mean Corpuscular Volume 91.3 fl (81.2-95.1); Mean Platelet Volume 11.5 fl (7.4-10.4); Platelet Count 161 10x3/uL (150-450); RBC Distribution Width 15.4 % (11.5-14.5); Red Blood Cell (RBC) Count 2.77 10x6/uL (4.32-5.72); White Blood Cell (WBC) Count 5.3 10x3/uL (3.5-10.5)
[2021-04-17 03:45] LABS: Anion Gap 12 mmol/L (10-20); BUN (Urea Nitrogen) 23 mg/dL (8.4-25.7); Calc. Creatinine Clearance 204 mL/min (70-130); Calcium 8.4 mg/dL (7.8-10.44); Carbon Dioxide 27 mmol/L (23-31); Chloride 103 mmol/L (98-107); Glucose 161 mg/dL (80-115); Potassium 3.6 mmol/L (3.5-5.1); Sodium 138 mmol/L (136-145)
[2021-04-17 04:03] LABS: MDiff Complete? YES
[2021-04-17 04:08] LABS: Band 17 % (5-11); Lymphocytes 11 % (21-51); Monocytes 2 % (0-10); Neutrophil 69 % (42-75)
[2021-04-17 04:09] LABS: Microcytosis MODERATE=15-30 cells (100X) (0-5/hpf)
[2021-04-17 04:10] LABS: Platelet Morphology Comment Appears Adequate
[2021-04-17] MEDS: HumaLOG 300 UNITS/3 ML VIAL SC PRN ×3 (04:46→16:15)
[2021-04-17] MEDS: Polyethylene Glycol 3350 17 GM Packet PER TUBE SCH (08:40)
[2021-04-17] MEDS: Famotidine/PF 20 mg/2ml Vial SLOW IVP SCH ×2 (08:40→20:25)
[2021-04-17] MEDS: Lantus 1000 UNITS/10 ML VIAL SC SCH ×2 (08:41→20:29)
[2021-04-17] MEDS: Senokot S 8.6-50 MG TAB PO SCH ×2 (08:42→20:25)
[2021-04-17] MEDS: Enoxaparin Sodium 40 MG/0.4 ML SYRINGE SC SCH (12:15)
[2021-04-17] MEDS ORDERED: Enoxaparin Sodium 40 MG/0.4 ML SYRINGE SC SCH (12:30)
[2021-04-17] MEDS: fentaNYL Citrate-0.9 % NaCl/PF 100 ML IVPB SCH (12:30)
[2021-04-17] MEDS: Aspirin 81 mg Enteric Coated Tablet PO SCH (20:24)
[2021-04-17] MEDS: Atorvastatin Calcium 40 MG TAB PO SCH (20:25)
[2021-04-17] MEDS ORDERED: Bisacodyl 10 MG SUPP PR SCH (20:30)
[2021-04-17] MEDS ORDERED: SODIUM CHLORIDE IVP SCH (21:00)
[2021-04-17] MEDS ORDERED: ADMIXTURE FEE IVP SCH (21:00)
[2021-04-17] MEDS ORDERED: METOCLOPRAMIDE HCL IVP SCH (21:00)
[2021-04-18] MEDS: oxyCODONE 5 MG TAB PO SCH ×7 (00:38→23:32)
[2021-04-18] MEDS: Lorazepam 2 MG/ML VIAL SLOW IVP PRN ×3 (00:39→04:24)
[2021-04-18] MEDS: Dexmedetomidine In 0.9 % NaCl 400 MCG in Premix Bag 1 BAG IVPB SCH ×7 (00:39→22:11)
[2021-04-18] MEDS: fentaNYL Citrate-0.9 % NaCl/PF 100 ML IVPB SCH (03:29)
[2021-04-18 04:53] LABS: #Monocytes 0.1 10x3/uL (0.0-1.1); %Eosinophils 0.9 % (0.0-6.0); %Monocytes 2.6 % (0.0-10.0); %Neutrophils 86.6 % (40.0-75.0); Hemoglobin 8.6 g/dL (13.5-17.5); Mean Corpuscular HGB CONC 32.2 g/dL (32.0-36.0); Mean Corpuscular Hemoglobin 29.5 pg (27.0-33.0); Mean Corpuscular Volume 91.4 fl (81.2-95.1); Mean Platelet Volume 11.8 fl (7.4-10.4); Platelet Count 163 10x3/uL (150-450); RBC Distribution Width 15.4 % (11.5-14.5); Red Blood Cell (RBC) Count 2.92 10x6/uL (4.32-5.72); White Blood Cell (WBC) Count 4.6 10x3/uL (3.5-10.5)
[2021-04-18 06:45] LABS: Anion Gap 15 mmol/L (10-20); BUN (Urea Nitrogen) 23 mg/dL (8.4-25.7); Calc. Creatinine Clearance 210 mL/min (70-130); Calcium 8.2 mg/dL (7.8-10.44); Carbon Dioxide 22 mmol/L (23-31); Chloride 105 mmol/L (98-107); Glucose 107 mg/dL (80-115); Potassium 4.1 mmol/L (3.5-5.1); Sodium 138 mmol/L (136-145)
[2021-04-18] MEDS ORDERED: Lidocaine 1% (PF) 30 ML VIAL FS SCH (08:00)
[2021-04-18] MEDS: Propofol 1,000 MG/100 ML VIAL IV PRN ×2 (08:15→18:00)
[2021-04-18] MEDS: Senokot S 8.6-50 MG TAB PO SCH ×2 (09:17→21:00)
[2021-04-18] MEDS: Famotidine/PF 20 mg/2ml Vial SLOW IVP SCH ×2 (09:18→21:01)
[2021-04-18] MEDS: Enoxaparin Sodium 40 MG/0.4 ML SYRINGE SC SCH (09:18)
[2021-04-18] MEDS: Metoclopramide HCl 10 MG/2 ML VIAL IVP SCH ×3 (09:18→21:00)
[2021-04-18] MEDS: Lantus 1000 UNITS/10 ML VIAL SC SCH ×2 (10:02→23:21)
[2021-04-18] MEDS ORDERED: Sodium Bicarbonate 2.5 MEQ/5 ML VIAL ONE (10:06)
[2021-04-18] MEDS ORDERED: Lidocaine 1% PF 5 ML VIAL ONE (10:06)
[2021-04-18] MEDS: Polyethylene Glycol 3350 17 GM Packet PER TUBE SCH (10:40)
[2021-04-18] MEDS ORDERED: Norepinephrine 8 MG/0.9% NS 250 ML ONE (15:22)
[2021-04-18] MEDS: Norepinephrine 8 MG/0.9% NS 250 ML IVPB SCH (15:30)
[2021-04-18] MEDS ORDERED: Labetalol HCl 200 MG, Admixture Fee 1 EACH in Sodium Chloride 0.9% 250 ML 160 ML IVPB SCH (16:00)
[2021-04-18] MEDS: Atorvastatin Calcium 40 MG TAB PO SCH (21:00)
[2021-04-18] MEDS: Aspirin 81 mg Enteric Coated Tablet PO SCH (21:01)
[2021-04-19] MEDS: Propofol 1,000 MG/100 ML VIAL IV PRN ×3 (00:27→17:32)
[2021-04-19] MEDS: Metoclopramide HCl 10 MG/2 ML VIAL IVP SCH ×4 (01:47→22:23)
[2021-04-19] MEDS: Dexmedetomidine In 0.9 % NaCl 400 MCG in Premix Bag 1 BAG IVPB SCH ×7 (01:47→20:21)
[2021-04-19] MEDS: oxyCODONE 5 MG TAB PO SCH ×3 (03:46→11:31)
[2021-04-19 04:04] LABS: #Eosinphils 0.1 10x3/uL (0.0-0.5); #Monocytes 0.1 10x3/uL (0.0-1.1); #Neutrophils 2.5 10x3/uL (1.5-8.4); %Basophils 0.3 % (0.0-2.0); %Eosinophils 2.3 % (0.0-6.0); %Lymphocytes 14.2 % (18.0-47.0); %Monocytes 3.2 % (0.0-10.0); %Neutrophils 79.4 % (40.0-75.0); Hemoglobin 7.4 g/dL (13.5-17.5); Mean Corpuscular HGB CONC 31.4 g/dL (32.0-36.0); Mean Corpuscular Hemoglobin 29.2 pg (27.0-33.0); Mean Corpuscular Volume 93.3 fl (81.2-95.1); Mean Platelet Volume 11.7 fl (7.4-10.4); Platelet Count 153 10x3/uL (150-450); RBC Distribution Width 15.8 % (11.5-14.5); Red Blood Cell (RBC) Count 2.53 10x6/uL (4.32-5.72); White Blood Cell (WBC) Count 3.1 10x3/uL (3.5-10.5)
[2021-04-19] MEDS: fentaNYL Citrate-0.9 % NaCl/PF 100 ML IVPB SCH (05:29)
[2021-04-19] MEDS: Senokot S 8.6-50 MG TAB PO SCH ×2 (08:32→22:24)
[2021-04-19] MEDS: Polyethylene Glycol 3350 17 GM Packet PER TUBE SCH (08:32)
[2021-04-19] MEDS: Famotidine/PF 20 mg/2ml Vial SLOW IVP SCH ×2 (08:32→22:23)
[2021-04-19] MEDS: Lantus 1000 UNITS/10 ML VIAL SC SCH ×2 (08:34→22:24)
[2021-04-19] MEDS: Enoxaparin Sodium 40 MG/0.4 ML SYRINGE SC SCH (08:34)
[2021-04-19 11:13] LABS: Base Excess (BEa) 1.3 mEq/L (-2.0 to +3.0); CO2 Tension 41.5 mmHg (35.0-45.0); Calcium, Ionized (arterial) 1.11 mmol/L (1.12-1.30); Carboxyhemoglobin (COHb) 1.2 gm% (0.0-3.0); Hemoglobin (Hb) 8.6 g/dL (14.0-18.0); O2 Tension (PaO2), arterial 50.8 mmHg (> 80.0); Potassium - ABG Lab 3.6 mmol/L (3.70-5.30); Puncture Site RRA; pH, Arterial 7.41 (7.35-7.45)
[2021-04-19 11:18] LABS: ALV-art Gradient 182.525 mmHg (0-20)
[2021-04-19] MEDS: Vecuronium 10 MG VIAL IVP PRN (11:53)
[2021-04-19] MEDS: Atorvastatin Calcium 40 MG TAB PO SCH (22:23)
[2021-04-19] MEDS: Aspirin 81 mg Enteric Coated Tablet PO SCH (22:24)
[2021-04-19] MEDS: Lorazepam 2 MG/ML VIAL SLOW IVP PRN (22:52)
[2021-04-20] MEDS: Norepinephrine 8 MG/0.9% NS 250 ML IVPB SCH ×2 (00:04→14:30)
[2021-04-20] MEDS: Dexmedetomidine In 0.9 % NaCl 400 MCG in Premix Bag 1 BAG IVPB SCH ×6 (00:04→17:21)
[2021-04-20] MEDS: Propofol 1,000 MG/100 ML VIAL IV PRN ×3 (00:44→14:30)
[2021-04-20] MEDS: Metoclopramide HCl 10 MG/2 ML VIAL IVP SCH ×3 (02:06→14:30)
[2021-04-20] MEDS: Vecuronium 10 MG VIAL IVP PRN ×3 (05:10→15:07)
[2021-04-20 05:19] VITALS: BMI 35.0
[2021-04-20 05:39] LABS: Hemoglobin 7.6 g/dL (13.5-17.5); Mean Corpuscular HGB CONC 32.8 g/dL (32.0-36.0); Mean Corpuscular Hemoglobin 29.2 pg (27.0-33.0); Mean Corpuscular Volume 89.2 fl (81.2-95.1); Mean Platelet Volume 11.6 fl (7.4-10.4); Platelet Count 152 10x3/uL (150-450); RBC Distribution Width 15.9 % (11.5-14.5); White Blood Cell (WBC) Count 2.5 10x3/uL (3.5-10.5)
[2021-04-20 05:40] LABS: MDiff Complete? YES
[2021-04-20 05:49] LABS: Band 7 % (5-11); Eosinophils 3 % (0-10); Lymphocytes 17 % (21-51); Monocytes 9 % (0-10); Neutrophil 57 % (42-75); Nucleated RBC 2 % (0); Reactive Lymphocytes 6 % (0-10)
[2021-04-20 05:51] LABS: Platelet Morphology Comment Appears Adequate; RBC Morphology Normal
[2021-04-20 08:17] LABS: Actual Bicarbonate (HCO3a) 26.7 mEq/L (22-28); Base Excess (BEa) -1.1 mEq/L (-2.0 to +3.0); CO2 Tension 62.9 mmHg (35.0-45.0); Calcium, Ionized (arterial) 1.12 mmol/L (1.12-1.30); Carboxyhemoglobin (COHb) 0.4 gm% (0.0-3.0); Hemoglobin (Hb) 8.9 g/dL (14.0-18.0); O2 Tension (PaO2), arterial 59.8 mmHg (> 80.0); Potassium - ABG Lab 3.8 mmol/L (3.70-5.30); Puncture Site LRA; pH, Arterial 7.25 (7.35-7.45)
[2021-04-20 08:19] LABS: ALV-art Gradient 574.575 mmHg (0-20)
[2021-04-20] MEDS: Famotidine/PF 20 mg/2ml Vial SLOW IVP SCH (08:26)
[2021-04-20] MEDS: Senokot S 8.6-50 MG TAB PO SCH (08:28)
[2021-04-20] MEDS: Enoxaparin Sodium 40 MG/0.4 ML SYRINGE SC SCH (08:28)
[2021-04-20] MEDS: Lantus 1000 UNITS/10 ML VIAL SC SCH (08:28)
[2021-04-20] MEDS: Polyethylene Glycol 3350 17 GM Packet PER TUBE SCH (08:28)
[2021-04-20] MEDS ORDERED: Micafungin 100 MG in Sodium Chloride 0.9% 100 ML IVPB SCH (09:00)
[2021-04-20] MEDS ORDERED: Dexamethasone 20 MG/5 ML VIAL SLOW IVP SCH (09:00)
[2021-04-20] MEDS ORDERED: VANCOMYCIN 2 GRAM/400 ML BAG 2 GM in Premix Bag 1 BAG IVPB SCH (09:00)
[2021-04-20] MEDS ORDERED: Meropenem 1 GM in Sodium Chloride 0.9% 100 ML IVPB SCH ×2 (09:00→17:00)
[2021-04-20] MEDS: Lorazepam 2 MG/ML VIAL SLOW IVP PRN (10:03)
[2021-04-20] MEDS: fentaNYL Citrate-0.9 % NaCl/PF 100 ML IVPB SCH (17:52)
[2021-04-20 19:50] VITALS: BP 96/59; TEMP 98.4
[2021-04-20] MEDS ORDERED: VANCOMYCIN 1.25 GM/250 ML BAG 1.25 GM in Premix Bag 1 BAG IVPB SCH (21:00)
== END 2021-04-20 20:00 | disposition hospice, home (50) | DRG 4 ==
LOC: CSHERS 15:25 → SUATTDRO 15:25 → OBSVTOIN 15:26 → INTOOBSV 15:26 → CSHTELE 15:26 → UNDOADMOB 15:26 → CSHTELE 03-29 03:42 → OBSVTOIN 03-29 03:42 → CSHICU 03-31 09:05 → CSHTELE 03-31 09:05 → UNDODISIN 04-20 20:00
PROVIDERS: ADMIT Family Medicine; ATTEND Hospitalist
PROC: 8E0ZXY6 Isolation (ICD-10-PCS; 2021-03-28)
PROC: XW033E5 Introduction of Remdesivir Anti-infective into Peripheral Vein, Percutaneous Approach, New Technology Group 5 (ICD-10-PCS; 2021-03-29)
PROC: 0BH18EZ Insertion of Endotracheal Airway into Trachea, Via Natural or Artificial Opening Endoscopic (ICD-10-PCS; 2021-04-02)
PROC: 02H633Z Insertion of Infusion Device into Right Atrium, Percutaneous Approach (ICD-10-PCS; 2021-04-02)
PROC: B548ZZA Ultrasonography of Superior Vena Cava, Guidance (ICD-10-PCS; 2021-04-02)
PROC: 5A1955Z Respiratory Ventilation, Greater than 96 Consecutive Hours (ICD-10-PCS; 2021-04-02)
PROC: XW0DXM6 Introduction of Baricitinib into Mouth and Pharynx, External Approach, New Technology Group 6 (ICD-10-PCS; 2021-04-02)
PROC: 3E033XZ Introduction of Vasopressor into Peripheral Vein, Percutaneous Approach (ICD-10-PCS; 2021-04-02)
PROC: 009U3ZX Drainage of Spinal Canal, Percutaneous Approach, Diagnostic (ICD-10-PCS; 2021-04-07)
PROC: 0B113F4 Bypass Trachea to Cutaneous with Tracheostomy Device, Percutaneous Approach (ICD-10-PCS; principal; 2021-04-11)
PROC: 0DH63UZ Insertion of Feeding Device into Stomach, Percutaneous Approach (ICD-10-PCS; 2021-04-11)
PROC: 3E0G76Z Introduction of Nutritional Substance into Upper GI, Via Natural or Artificial Opening (ICD-10-PCS; 2021-04-11)
PROC: 0W9930Z Drainage of Right Pleural Cavity with Drainage Device, Percutaneous Approach (ICD-10-PCS; 2021-04-18)
PROC: 02HV33Z Insertion of Infusion Device into Superior Vena Cava, Percutaneous Approach (ICD-10-PCS; 2021-04-18)
PROC: B548ZZA Ultrasonography of Superior Vena Cava, Guidance (ICD-10-PCS; 2021-04-18)
DX: U07.1 COVID-19 (principal); J12.82 Pneumonia due to coronavirus disease 2019; G93.41 Metabolic encephalopathy; A41.9 Sepsis, unspecified organism; J80 Acute respiratory distress syndrome; J93.9 Pneumothorax, unspecified; G93.1 Anoxic brain damage, not elsewhere classified; E87.3 Alkalosis; I24.8 Other forms of acute ischemic heart disease; E46 Unspecified protein-calorie malnutrition; B37.0 Candidal stomatitis; Z51.5 Encounter for palliative care; Z66 Do not resuscitate; I25.10 Atherosclerotic heart disease of native coronary artery without angina pectoris; I10 Essential (primary) hypertension; E66.9 Obesity, unspecified; T38.0X5A Adverse effect of glucocorticoids and synthetic analogues, initial encounter; R73.9 Hyperglycemia, unspecified; K59.00 Constipation, unspecified; Z78.1 Physical restraint status; Z88.0 Allergy status to penicillin; Z90.49 Acquired absence of other specified parts of digestive tract; Z68.35 Body mass index [BMI] 35.0-35.9, adult; Z95.5 Presence of coronary angioplasty implant and graft; Z82.49 Family history of ischemic heart disease and other diseases of the circulatory system; F17.210 Nicotine dependence, cigarettes, uncomplicated
CPT/HCPCS: 36415; 36416; 36569; 36600; 71045; 71275; 74018; 76705; 80048; 80053; 80061; 80076; 82248; 82550; 82805; 82945; 83036; 83735; 84100; 84145; 84157; 84443; 84478; 84484; 85025; 85379; 85610; 85652; 85730; 86140; 86850; 86900; 86901; 87040; 87070; 87081; 87086; 87205; 87449; 87899; 89051; 93005; 93010; 93306; 94002; 94003; 94640; 94660; 94760; 94762; C1751; G0378; J0171; J0360; J0456; J0696; J1100; J1630; J1650; J1815; J1940; J2001; J2060; J2185; J2248; J2270; J2358; J2405; J2704; J2765; J3010; J3370; J3475; J3486; J3490; J7030; J7050; Q0163; S0020; S0028

== ENCOUNTER 2021-04-20 20:54 | Inpatient (IN) | payer MEDICARE, OTHER ==
[2021-04-20 21:12] VITALS: BMI 35.1
[2021-04-20] MEDS ORDERED: Scopolamine 1.5 mg/72 hour Patch TOP SCH (21:15)
[2021-04-20] MEDS: Morphine 4 MG/ML VIAL SLOW IVP PRN ×4 (21:17→21:55)
[2021-04-20] MEDS: Lorazepam 2 MG/ML VIAL SLOW IVP PRN ×4 (21:17→21:55)
[2021-04-21] MEDS ORDERED: Lorazepam 2 MG/ML VIAL SLOW IVP SCH
[2021-04-21] MEDS ORDERED: Morphine 4 MG/ML VIAL SLOW IVP SCH
== END 2021-04-21 02:00 | disposition expired | DRG 951 ==
LOC: CSHICU 20:54
PROVIDERS: ADMIT Internal Medicine; ATTEND Internal Medicine
DX: Z51.5 Encounter for palliative care (principal); Z86.16 Personal history of COVID-19; Z87.01 Personal history of pneumonia (recurrent); I10 Essential (primary) hypertension; I25.10 Atherosclerotic heart disease of native coronary artery without angina pectoris; E66.9 Obesity, unspecified; Z68.35 Body mass index [BMI] 35.0-35.9, adult
CPT/HCPCS: 93005; 93010; J2060; J2270